=== PATIENT | male | born 1960 | race Caucasian/White ===

== ENCOUNTER 2018-06-03 11:45 | Inpatient (IN) | payer SELFPAY ==
[2018-06-03 12:29] LABS: Bilirubin Negative (Negative); Blood, Urine Negative (Negative); Clarity CLEAR (Clear); Glucose, Urine (Dipstick) Negative (Negative); Leukocyte Negative (Negative); Nitrite Negative (Negative); Protein, Urine (Dipstick) Negative (Neg-Trace); Specific Gravity, Urine 1.026 (1.002-1.036); Urobilinogen 0.2 mg/dL (0.2-1.0); pH, Urine 5.5 (5.0-9.0)
[2018-06-03 12:29] LABS: ALT (SGPT) 7 U/L (8-55); AST (SGOT) 13 U/L (5-34); Albumin 4.4 g/dL (3.5-5.0); Alkaline Phosphatase 105 U/L (40-150); Anion Gap 12 mmol/L (10-20); BUN (Urea Nitrogen) 15 mg/dL (8.4-25.7); Bilirubin, Total 0.5 mg/dL (0.2-1.2); Calc. Creatinine Clearance 0 mL/min (70-130); Calcium 9.6 mg/dL (7.8-10.44); Carbon Dioxide 25 mmol/L (22-29); Chloride 103 mmol/L (98-107); Estimated GFR-MDRD 72; Globulin 4.3 g/dL (2.4-3.5); Glucose 170 mg/dL (70-105); Potassium 4.1 mmol/L (3.5-5.1); Protein, Total 8.7 g/dL (6.0-8.3); Sodium 136 mmol/L (136-145)
[2018-06-03 12:34] LABS: INR-International Normal Ratio 1.1; PTT 27.9 SEC (22.9-36.1); Prothrombin Time 14.4 SEC (12.0-14.7)
[2018-06-03 12:56] LABS: #Eosinphils 0.1 thou/uL (0.0-0.7); #Lymphocytes 1.6 thou/uL (1.20-3.40); #Monocytes 0.5 thou/uL (0.11-0.59); #Neutrophils 5.8 thou/uL (1.40-6.50); %Basophils 0.6 % (0.0-1.0); %Eosinophils 1.7 % (0.0-10.0); %Lymphocytes 19.8 % (21.0-51.0); %Monocytes 5.6 % (0.0-10.0); %Neutrophils 72.3 % (42.0-75.0); Eosinophils 4 % (0-10); Hemoglobin 7.6 g/dL (14.0-18.0); Hypochromia MODERATE=16-30 cells (100X) (0-5/hpf); Lymphocytes 12 % (21-51); MDiff Complete? YES; Mean Corpuscular HGB CONC 29.4 g/dL (32.0-36.0); Mean Corpuscular Volume 61.2 fL (78.0-98.0); Microcytosis MODERATE=15-30 cells (100X) (0-5/hpf); Monocytes 7 % (0-10); Neutrophil 76 % (42-75); PLT Morphology Comment Appears Adequate; Platelet Count 277 thou/uL (130-400); Polychromasia SLIGHT = 2-3 cells (100X) (0-2/hpf); RBC Distribution Width 15.4 % (11.5-14.5); Red Blood Cell (RBC) Count 4.21 mill/uL (4.70-6.10)
[2018-06-03] MEDS ORDERED: ISOVUE-370 76%-LOCM 1 ML ONE (14:04)
--- NOTE | 2018-06-03 14:12 | CT ---
CT ABDOMEN AND PELVIS WITH IV CONTRAST: Multiple axial tomograms were obtained through the abdomen and pelvis with IV enhancement. Oral cont rast was not administered. INDICATION: Loss of appetite. Blood in stool. Weakness and lethargy. Hematemesis. FINDINGS: Lung bases clear. The liver, spleen, and pancreas appear unremarkable. Stomach and duodenum unremarkable. Adrenal gla nds unremarkable. Kidneys unremarkable. The small bowel loops are normal caliber. Colon is unremarkable. Urinary bladder is unremarkable. The ileus has mild atherosclerotic change. The aorta is ectatic measuring up to 2.3 cm distally. Th ere is thrombus in the right wall of the aorta distally at the site of mild ectasia. IMPRESSION: 1. There are atherosclerotic changes in the abdominal aorta with peripheral thrombus and ectasia as described. 2. No acute intraabdominal process identified. POS: MILES
[2018-06-03] MEDS ORDERED: Ondansetron HCl/PF 4 MG/2 ML Vial IVP PRN ×2 (16:13→17:16)
[2018-06-03] MEDS ORDERED: Acetaminophen 325 MG TAB PO PRN (16:13)
[2018-06-03] MEDS ORDERED: Ondansetron ODT 4 MG TAB SL PRN (16:13)
[2018-06-03 16:25] VITALS: BMI 23.8
[2018-06-03] MEDS ORDERED: GoLYTELY 4,000 ml Bottle PO SCH (17:00)
[2018-06-03] MEDS ORDERED: hydrALAZINE 20 MG/ML VIAL SLOW IVP PRN (17:16)
[2018-06-03] MEDS ORDERED: Ondansetron ODT 4 MG TAB PO PRN (17:16)
[2018-06-03] MEDS ORDERED: cloNIDine 0.1 MG TAB PO PRN (17:16)
[2018-06-03] MEDS: Sodium Chloride 0.9% 1,000 ML IV SCH (17:54)
[2018-06-03] MEDS: Pantoprazole 40 MG VIAL IVP SCH (20:06)
--- NOTE | 2018-06-03 20:19 | HP ---
DATE OF ADMISSION: 06/03/2018 PRIMARY CARE PHYSICIAN: Toyin bui. CHIEF COMPLAINT: Abdominal pain and blood in the stool. HISTORY OF PRESENT ILLNESS: This is a 58-year-old male who presents to [facility] complaining of approximately 3-month history of blood in the stool with increasing abd ominal cramping abdominal pain and approximately 50 pound weight loss. The patient states that he rey s had decreased energy, fatigue and sleeping more. The patient has noticed blood in the stool, but h as been bright red and dark at times. The patient states he has a sense of urgency and has a bowel m ovement with cramping. The patient denies any recent trauma, injury, previous endoscopy, travel hist ory. The patient denies any alcohol intake or tobacco use. The patient states he has been taking ib uprofen and Benadryl for assistance due to insomnia. The patient also states he was taking large rani unts of ibuprofen after an ankle fracture. The patient denies any chronic medical conditions, recent surgeries or past evaluation for similar episodes. The patient denies any travel history. The kishore ent admits to over 50 pound unintentional weight loss over the same time course as the blood in the s tool. The patient denies taking any medication for the blood in the stool or seeking evaluation due to negative view of the healthcare system. In the emergency room, the patient underwent general eval uation with CBC showing a hemoglobin of 7.6 with microcytic indices. Stool guaiac was positive x1. The patient was typed and crossed for 2 units of packed red blood cells. The patient also underwent CT imaging of the abdomen and pelvis showing no acute process. The patient was placed on IV fluids a nd transferred to the medical floor for further evaluation. PAST MEDICAL HISTORY: 1. Left calcaneus fracture, 2016. 2. Question of elevated blood pressure. 3. History of nephrolithiasis. PAST SURGICAL HISTORY: Reviewed and negative. CURRENT MEDICATIONS: Ibuprofen/diphenhydramine for insomnia. ALLERGIES: No known drug allergies. FAMILY HISTORY: Uncle with history of colon cancer. SOCIAL HISTORY: Patient is single, resides in [place], [place]. 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 No tobacco, alc ohol, or illicit drug use. REVIEW OF SYSTEMS: The following complete review of systems was negative, unless otherwise mentioned in the HPI or below: Constitutional: Weight loss or gain, ability to conduct usual activities. Sk in: Rash, itching. Eyes: Double vision, pain. ENT/Mouth: Nose bleeding, neck stiffness, pain, te nderness. Cardiovascular: Palpitations, dyspnea on exertion, orthopnea. Respiratory: Shortness of breath, wheezing, cough, hemoptysis, fever or night sweats. Gastrointestinal: Poor appetite, abdom inal pain, heartburn, nausea, vomiting, constipation, or diarrhea. Genitourinary: Urgency, frequenc y, dysuria, nocturia. Musculoskeletal: Pain, swelling. Neurologic/Psychiatric: Anxiety, depressio n. Allergy/Immunologic: Skin rash, bleeding tendency. PHYSICAL EXAMINATION: VITAL SIGNS: Currently, blood pressure 143/84, pulse 67, respiratory rate 16, temperature 98.1 degre es Fahrenheit, O2 saturation is 100% on room air. GENERAL APPEARANCE: This is a 58-year-old male, alert and oriented x3, pleasant, conversan t, in no acute distress. HEENT: Pupils are equal, round, and reactive to light and accommodation. Extraocular muscles are in tact. No scleral icterus. Pale conjunctivae noted. Nares patent. OP is clear. Teeth in fair repa ir. NECK: Supple, no cervical adenopathy, no thyromegaly, no carotid bruits, no JVD appreciated. Cervic al spine with full active and passive range of motion. No meningeal signs appreciated. CHEST: Lungs are clear to auscultation bilaterally. CARDIOVASCULAR: S1, S2, without noted murmur, rub or gallop. ABDOMEN: Rounded, soft, nontender, nondistended. Bowel sounds are positive in all four quadrants. There is no hepatosplenomegaly, no abdominal bruits, no rebound or guarding appreciated. EXTREMITIES: Warm and dry with fair turgor. No clubbing, cyanosis or asymmetric edema appreciated. Pulses palpable distally at the dorsalis pedis, posterior tibial, and popliteal arteries bilaterally . Capillary refill less than 2 seconds. NEUROLOGIC: Cranial nerves II-XII are grossly intact. No focal or lateralizing signs appreciated. PERTINENT LABORATORY AND X-RAY FINDINGS: Basic metabolic profile within normal limits. Calcium 9.6. LFTs within normal limits. Total bilirubin 0.5, albumin 4.4. CBC showed a white blood cell count of 8.0, hemoglobin 7.6, hematocrit 26, MCV 61, platelet count 277 with 72% neutrophils. PT 14.4, INR 1.1, PTT 27.9. Urinalysis showed trace ketones. CT of the abdomen and pelvis dated 06/03/2018 show ed atherosclerotic changes in the abdominal aorta with peripheral thrombus at the site of mild ectasi a. No acute intra-abdominal process identified. ASSESSMENT AND PLAN: 1. Gastrointestinal bleed. The patient will be admitted to the medical floor. We will continue Pro tonix 40 mg IV q.12 hours. Suspect upper gastrointestinal source given history and ongoing use of NS AIDs. We will consult GI service for EGD and colonoscopy likely to be performed on 06/04/2018. Molly monroy currently with n.p.o. status at midnight. 2. Acute blood loss anemia with microcytic indices. Status post 2 units of packed red blood cells c urrently. Continue serial H&H monitoring, repeat CBC in the a.m. Check iron studies. 3. Weight loss. Concerning for potential neoplastic process given the patient's history. We will p roceed with EGD and colonoscopy. Check CEA level in the a.m. 4. Prophylaxis. Sequential compression devices while in bed. Protonix 40 mg IV q.12 hours. 5. Code status is FULL. Surrogate medical decision maker is the patient's daughter.
[2018-06-04] MEDS: Sodium Chloride 0.9% 1,000 ML IV SCH ×4 (02:38→23:20)
[2018-06-04] MEDS: Acetaminophen 500 MG TAB PO PRN ×2 (02:38→14:04)
[2018-06-04 05:10] LABS: Reticulocyte Count 1.5 % (0.5-1.5)
[2018-06-04 05:14] LABS: #Basophils 0.1 thou/uL (0.0-0.2); #Eosinphils 0.2 thou/uL (0.0-0.7); #Lymphocytes 1.9 thou/uL (1.20-3.40); #Monocytes 0.5 thou/uL (0.11-0.59); %Basophils 1.1 % (0.0-1.0); %Lymphocytes 28.5 % (21.0-51.0); %Monocytes 7.2 % (0.0-10.0); %Neutrophils 60.3 % (42.0-75.0); Hemoglobin 8.5 g/dL (14.0-18.0); Mean Corpuscular HGB CONC 31.2 g/dL (32.0-36.0); Mean Corpuscular Hemoglobin 20.4 pg (27.0-31.0); Mean Corpuscular Volume 65.3 fL (78.0-98.0); Mean Platelet Volume 10.6 fL (7.4-10.4); Platelet Count 256 thou/uL (130-400); RBC Distribution Width 21.2 % (11.5-14.5); Red Blood Cell (RBC) Count 4.18 mill/uL (4.70-6.10); White Blood Cell (WBC) Count 6.6 thou/uL (4.8-10.8)
[2018-06-04 05:18] LABS: Iron 56 ug/dL (65-175); Iron Binding Capacity, Total 379 mcg/dL (261-462)
[2018-06-04 05:21] LABS: ALT (SGPT) Less than 7 U/L (8-55); AST (SGOT) 11 U/L (5-34); Albumin 3.9 g/dL (3.5-5.0); Alkaline Phosphatase 94 U/L (40-150); Anion Gap 10 mmol/L (10-20); BUN (Urea Nitrogen) 12 mg/dL (8.4-25.7); Bilirubin, Total 1.1 mg/dL (0.2-1.2); Calc. Creatinine Clearance 101 mL/min (70-130); Calcium 9.3 mg/dL (7.8-10.44); Carbon Dioxide 26 mmol/L (22-29); Chloride 107 mmol/L (98-107); Estimated GFR-MDRD 85; Globulin 3.7 g/dL (2.4-3.5); Glucose 94 mg/dL (70-105); Iron 56 ug/dL (65-175); Iron Binding Capacity, Total 384 mcg/dL (261-462); Potassium 4.4 mmol/L (3.5-5.1); Protein, Total 7.6 g/dL (6.0-8.3); Sodium 139 mmol/L (136-145)
[2018-06-04 05:32] LABS: CEA, Serum 5.7 ng/mL (< or = 5.0); Ferritin 4.46 ng/mL (22-322)
[2018-06-04] MEDS: Pantoprazole 40 MG VIAL IVP SCH ×2 (10:12→21:34)
[2018-06-04] MEDS ORDERED: Promethazine HCl 25 MG/ML VIAL SLOW IVP PRN (10:36)
[2018-06-04] MEDS ORDERED: Promethazine HCl 25 MG/ML VIAL IM PRN (10:36)
[2018-06-04] MEDS ORDERED: Ondansetron HCl/PF 4 MG/2 ML Vial IVP PRN (10:36)
--- NOTE | 2018-06-04 10:43 | CON ---
DATE OF CONSULTATION: 06/04/2018 REASON FOR CONSULTATION: Anemia and gastrointestinal bleeding. HISTORY OF PRESENT ILLNESS: Mr. Austin is a 58-year-old male who came to the emergency room last n ight with several months of rectal bleeding. He reports that mostly the stool is maroon to black. Sonia cardoza has had no nausea or vomiting. He has lost from about 240 pounds to about 180 pounds. He has fati lazara, decreased energy, and notes more sleeping. The stool sometimes is bright red, sometimes it is d ark and sometimes it is black. He does take quite a bit of NSAIDs, up to at 12 ibuprofen a day secon nicki to an old heel injury on the left foot that was supposed to be operated on, but never was. He d id drink alcohol heavily in the past, but does not have a taste for it and has not drank in 2 years. His daughter is at the bedside confirms this. He denies any dysphagia, odynophagia. His appetite i s okay, but when he eats he states he goes to the bathroom almost right away. In the emergency room, he was noted to have a hemoglobin of 7.6 with microcytic indices. His stool was Hemoccult positive. He was transfused 2 units of blood. CAT scan of abdomen and pelvis showed no acute processes. Pre sently he is without other complaints. PAST MEDICAL HISTORY: Left calcaneal fracture 2016. Prior history of elevated blood pressure. Hist ory of nephrolithiasis. PAST SURGICAL HISTORY: Negative. CURRENT MEDICATIONS: Ibuprofen and Benadryl for insomnia. ALLERGIES: None known. FAMILY HISTORY: Uncle with colon cancer. He thinks his mother may have had colon cancer. SOCIAL HISTORY: In the past he was a heavy drinker, he does not drink now. He does not smoke or use drugs. REVIEW OF SYSTEMS: Negative for chest pain, shortness of breath, dyspnea on exertion, dysphagia, hayley nophagia, abdominal pain, heartburn. Denies dysuria, frequency, urgency. PHYSICAL EXAMINATION: GENERAL: The patient is a 58-year-old male, he is in no distress. VITAL SIGNS: Temperature 97, pulse 66, blood pressure 130/78. LUNGS: Clear. HEART: Regular rate and rhythm without clicks or murmurs. ABDOMEN: Soft, nontender, without palpable hepatomegaly. EXTREMITIES: No clubbing, cyanosis or edema. There is no evidence of adenopathy in the upper or low er extremities or groin, inguinal region, supraclavicular area. SKIN: Normal. LABORATORY STUDIES: Hemoglobin is 8.5 after 2 units, it was 7.6 on admission, MCV was 61. White cou nt 8, platelet 277. INR 1.1. Comprehensive metabolic profile normal with normal liver function test s, proteins 8.7 on admission. Albumin 4.4. CEA was 5.7. Ferritin 4.4, iron saturation 15%, iron 56 and TIBC 379. A CAT scan of abdomen and pelvis; atherosclerotic changes in the abdominal aorta, peripheral thrombus and ectasia, no acute intraabdominal process. This was with IV contrast. No chest x-ray was done. ASSESSMENT: Severe microcytic anemia with rectal bleeding for 3 months and significant weight loss c oncerning for severe organic disease. PLAN: EGD and colonoscopy.
--- NOTE | 2018-06-04 11:21 | OP ---
DATE OF PROCEDURE: 06/04/2018 SURGEON: Coleman Christian M.D. OPERATIVE PROCEDURE: EGD and colonoscopy with polypectomy and biopsy. PREOPERATIVE DIAGNOSES: 1. Severe microcytic anemia with history of weight loss and lower gastrointestinal bleeding. 2. Heavy NSAID use. POSTOPERATIVE DIAGNOSES: 1. Normal esophagogastroduodenoscopy. 2. Colonoscopy notable for rectal mass from 2-10 cm from the anorectal verge involving 50% of the ci rcumference of the rectum. It is ulcerated, hard. Multiple biopsies were obtained. 3. A 5 mm ascending colon polyp removed by hot snare polypectomy and submitted to Pathology in a dif ferent jar. RECOMMENDATIONS: Surgical consult, Oncology consult. Repeat colonoscopy in 1 year. Recommended col orectal cancer screening for all first degree relatives at age 40. ANESTHESIA: TIVA. PROCEDURE IN DETAIL: After the patient was informed of the risks, benefits and possible complication s of endoscopy including perforation, bleeding, reactions to medication and aspiration, informed cons ent was obtained. The patient was brought to the endoscopy suite where he was sedated in gradual fas hion. Once he was comfortable, a bite block was placed in incisural orifice. The endoscope was adva nced through the oropharynx into the esophagus, stomach, second and third portion of duodenum and slo wly removed. The esophagus, stomach, and duodenum were normal except for a hiatal hernia. Retroflex ed views in the stomach were normal. The duodenum appeared normal with normal villi, no erosions. T he scope was removed. The patient was turned in the room. A rectal exam was performed. There was a mass palpated about a centimeter to 2 cm into the anorectal verge with raised margins, a firm surface. The endoscope was a dvanced into the anal canal through the colon to cecum which was identified by the ileocecal valve an d appendiceal orifice. Retroflexed views in the right colon were normal. There was a 5 mm polyp in the ascending colon, sessile, removed by hot snare polypectomy. Remainder of the colon appeared norm al except for in the colon there is some ulcerative mass with raised margins involving 50% of lumen o f the rectum from 10-2 cm from the anorectal verge. Multiple biopsies were taken and submitted to Pa thology. Retroflexed views showed this to be again 1-2 cm above the dentate line. The scope was rem margaux. The patient tolerated the procedure well with no complications. RECOMMENDATIONS: Consultations with General Surgery and Oncology.
--- NOTE | 2018-06-04 19:03 | RAD ---
CHEST TWO VIEWS: HISTORY: Rectal cancer. COMPARISON: Chest radiograph from 2008. FINDINGS: The lungs are clear. No pneumothorax or effusion. The cardiac silhouette and mediastinal contour ar e within normal limits. IMPRESSION: No acute intrathoracic abnormality. POS: HOME
[2018-06-04] MEDS ORDERED: Temazepam 15 MG CAP PO PRN (19:16)
[2018-06-04] MEDS: SODIUM CHLORIDE 0.9% IVPB SCH (19:23)
[2018-06-04] MEDS: SODIUM FERRIC GLUCONATE IVPB SCH (19:23)
--- NOTE | 2018-06-04 20:56 | PDOC.PN ---
- Subjective Encounter Start Date: 06/04/18 Encounter Start Time: 18:40 Subjective: f/u for GI bleed and acute blood loss anemia s/p 2u PRBC's. Colonoscopy -: showing rectal mass likely malignancy. - Objective Resuscitation Status: Resuscitation Status FULL:Full Resuscitation MAR Reviewed: Yes Vital Signs & Weight: Vital Signs (12 hours) Temp Pulse Resp BP Pulse Ox 06/04/18 16:36 97.8 F 63 18 124/75 99 06/04/18 11:27 97.9 F 58 L 18 132/83 100 Weight Weight 176 lb I&O: 06/03/18 06/04/18 06/05/18 06:59 06:59 06:59 Intake Total 1550 800 Balance 1550 800 Result Diagrams: 06/04/18 04:23 06/04/18 04:22 Additional Labs: Laboratory Tests 06/03/18 06/03/18 06/04/18 11:57 12:18 04:22 Hgb 7.6 L MCV 61.2 L Retic Count Immature Retic Fraction Iron TIBC % Saturation Ferritin Albumin 4.4 3.9 Carcinoembryonic Ag 06/04/18 06/04/18 06/04/18 04:22 04:22 04:23 Hgb MCV Retic Count 1.5 Immature Retic Fraction 0.463 H Iron 56 L TIBC 379 % Saturation 15 L Ferritin 4.46 L Albumin Carcinoembryonic Ag 5.70 H Radiology Reviewed by me: Yes (Colonoscopy - large rectal mass ) Phys Exam - Physical Examination Constitutional: NAD HEENT: PERRLA, sclera anicteric, oral pharynx no lesions Neck: no nodes, no JVD, supple, full ROM Respiratory: no wheezing, no rales, no rhonchi, clear to auscultation bilateral S1, S2 Cardiovascular: RRR, no significant murmur, no rub, gallop Gastrointestinal: soft, non-tender, no distention, positive bowel sounds Musculoskeletal: no edema, pulses present Neurological: non-focal, normal sensation, moves all 4 limbs Psychiatric: A&O x 3 Skin: no rash, normal turgor, cap refill <2 seconds Dx/Plan (1) GI bleed Code(s): K92.2 - GASTROINTESTINAL HEMORRHAGE, UNSPECIFIED Status: Acute Qualifiers: GI bleed type/associated pathology: anorectal hemorrhage Qualified Code(s) : K62.5 - Hemorrhage of anus and rectum Comment: Secondary to rectal mass, serial H/H, Consult Gen Surgery (2) Acute blood loss anemia Code(s): D62 - ACUTE POSTHEMORRHAGIC ANEMIA Status: Acute Comment: s/p 2u PRBC's, serial H/H, avoid NSAIDs and anticoagulation (3) Rectal mass Code(s): K62.9 - DISEASE OF ANUS AND RECTUM, UNSPECIFIED Status: Acute Comment: Likely malignancy, Med Oncology and Gen Surgery consults (4) Iron deficiency anemia due to chronic blood loss Code(s): D50.0 - IRON DEFICIENCY ANEMIA SECONDARY TO BLOOD LOSS (CHRONIC) Status: Chronic Comment: Iron infusion today, FeSO4 po BID for outpt (5) Anorexia Code(s): R63.0 - ANOREXIA Status: Chronic Comment: Continue to monitor po intake and daily weight, ? Megace - Plan plan discussed w/ family, PT/OT, social contact worker, out of bed/ambulate, DVT proph w/SCDs Stable currently -: Await Gen Surgery and Medical Oncology recommendations -: FeSO4 325mg BID -: Restoril 15mg HS for insomnia -: AM lab: BMP, CBC * .
--- NOTE | 2018-06-04 22:46 | CON ---
DATE OF CONSULTATION: 06/04/2018 REASON FOR CONSULTATION: Rectal mass. HISTORY OF PRESENT ILLNESS: Mr. Austin is a pleasant 58-year-old gentleman, [facility] a 3-month history of rectal bleeding. He also has lost 50 pounds over t he last several months. He has had bright red to dark stool and has dark blood in his stool. He had an abdominal-pelvis CT, which showed no mass. His CBC showed hemoglobin of 7.6, received 2 units of packed RBCs and was admitted for further workup. Dr. Christian saw the patient and performed an EGD an d colonoscopy this morning. There was a 5 mm polyp in the ascending colon that was removed. The EGD was normal. He had a rectal mass from 2 to 10 cm from the anorectal verge, involved 50% of the circ umference of the rectum. It was ulcerated. Multiple biopsies were obtained and they are currently p ending. The patient has not had a colonoscopy. He has an uncle and possibly mother who had colon ca ncer. He denies any chest pain or shortness of breath. He denies abdominal pain. He has some recta l discomfort. He does have frequent diarrhea and poor appetite. CEA drawn was 5.7. PAST MEDICAL HISTORY: 1. Hypertension. 2. Nephrolithiasis. 3. Left ankle fracture. PAST SURGICAL HISTORY: None. ALLERGIES: No known drug allergies. CURRENT MEDICATIONS: Benadryl and ibuprofen. FAMILY HISTORY: Uncle with colon cancer. He thinks his mother may have had colon cancer as well. SOCIAL HISTORY: Single, past history of heavy drinking over 2 years ago. No current alcohol, tobacc o, or illicit drug use. REVIEW OF SYSTEMS: Ten-point review of systems is negative except noted in HPI. PHYSICAL EXAMINATION: VITAL SIGNS: Temperature is 97.8, pulse is 63, respiratory rate 18, BP is 124/75, he is 99% on room air. GENERAL: A well-developed, well-nourished male, in no acute distress. HEENT: Normocephalic, atraumatic. Pupils are equal and reactive to light. NECK: Supple. CARDIOVASCULAR: Regular rate and rhythm. LUNGS: Clear. ABDOMEN: Soft and nontender. There is no organomegaly. Bowel sounds are positive. EXTREMITIES: No clubbing, cyanosis, or edema. SKIN: No rash. HEMATOLOGIC: No petechia or purpura. NEUROLOGIC: Nonfocal. PSYCHIATRIC: The patient is alert and oriented and appropriate. PERTINENT LABORATORY AND X-RAYS: Current WBC 6.6, hemoglobin 8.5, hematocrit 27.3, platelet count is 256,000. He has got 60% neutrophils, 28% lymphocytes. Retic count is 1.5. PT is 14.4, INR is 1.1, PTT is 27.9. Sodium 139, potassium 4.4, chloride 107, CO2 is 26, BUN is 12, creatinine is 0.92, glu cose is 94, calcium 9.6. Iron 56, TIBC is 379, 50% saturation, ferritin is 4. Total bilirubin is 1. 1, AST is 11, ALT is less than 7, alkaline phosphatase is 94. Serum total protein 7.6, albumin 3.9, globulin 3.7. CEA is 5.7. Radiology per HPI. ASSESSMENT: 1. Rectal mass. 2. Blood loss anemia. DISCUSSION: Dr. Cuninngham has been consulted for a surgical opinion. He likely needs neoadjuvant chemo radiation. We will consult Dr. Spencer for his opinion and case management for assistance with financi al services. He will get one dose of IV iron. For his low ferritin count, further recommendations w ill be based on pathological review. Thank you for the consult.
--- NOTE | 2018-06-04 22:58 | HP ---
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 He was found, on admission, to have hemoglobin of 7.6. Because of symptoms, he was transfused blood. He underwent upper and lower endoscopy by Dr. Christian; upper endo scopy is normal, lower endoscopy revealed a rectal mass described as about 2 to 10 cm from the anorec jonathan verge occupying 50% of the circumference of the rectum, extending from 2 cm to 10 cm. Biopsies o btained. Pathology pending. CEA elevated to 5.7. Chest x-ray will be ordered, as it has not been o btained. FALLON Quispe, Oncology, has seen him and plan is for chemoradiation therapy. ALLERGIES: None. TOBACCO: None. ALCOHOL: None. MEDICATIONS: Ibuprofen. PAST SURGICAL HISTORY: Noncontributory. PAST MEDICAL HISTORY: Calcaneus fracture in 2016, history of nephrolithiasis. REVIEW OF SYSTEMS: Unremarkable. FAMILY HISTORY: Positive for his mother having colon cancer, his aunt having colon cancer, and his b rother having colon cancer. His sister has undergone colonoscopies every 2-3 years with a history of polyps. Patient has been resistant to have colonoscopies in the past. PHYSICAL EXAMINATION: VITAL SIGNS: Height 6 feet, weight 176 pounds, 23 BMI, temperature 97.8, pulse 63, blood pressure 12 475. LUNGS: Clear to auscultation. CARDIAC: Regular rate and rhythm without murmur, rub, or gallop. ABDOMEN: Soft, nontender, nondistended, no palpable masses. EXTREMITIES: Unremarkable. Ankles without edema. NEUROLOGICAL: Intact. Sclerae nonicteric. SKIN: Normal turgor. Rectal exam reveals posteriorly. I can feel the base of the tumor approximate ly 4-5 cm beyond the anus. There is a shelving edge projecting within 2-3 cm of the anus. The tumor is firm and immobile. Comprehensive metabolic profile normal. CEA level 5.7. Hemoglobin 8.5, white count 6. ASSESSMENT AND PLAN: Rectal cancer. Pathology pending. Agree with plans for josi adjunctive chemora diation therapy, port will not be necessary as oral chemotherapy will be initiated. I have discussed with the patient and his family that, if josi-adjunctive therapy does not adequately downsize this, h e may need an APR, but reassessment after radiation therapy should be done and plans will be made at that time for surgical intervention. Patient understands. Surgery will be necessary and that chemor adiation is josi-adjunctive therapy. Patient will take iron and vitamins as an outpatient. He will f ollow up in my office in about 4-6 weeks after radiation is complete.
[2018-06-05] MEDS: Acetaminophen 500 MG TAB PO PRN (04:55)
[2018-06-05 05:24] LABS: Anion Gap 13 mmol/L (10-20); BUN (Urea Nitrogen) 8 mg/dL (8.4-25.7); Calc. Creatinine Clearance 97 mL/min (70-130); Calcium 9.1 mg/dL (7.8-10.44); Carbon Dioxide 24 mmol/L (22-29); Chloride 107 mmol/L (98-107); Estimated GFR-MDRD 81; Glucose 91 mg/dL (70-105); Potassium 3.6 mmol/L (3.5-5.1); Sodium 140 mmol/L (136-145)
[2018-06-05 05:30] LABS: Band 1 % (5-11); Eosinophils 5 % (0-10); Lymphocytes 24 % (21-51); MDiff Complete? YES; Mean Corpuscular HGB CONC 30.5 g/dL (32.0-36.0); Mean Corpuscular Volume 65.5 fL (78.0-98.0); Mean Platelet Volume 10.8 fL (7.4-10.4); Monocytes 5 % (0-10); Neutrophil 65 % (42-75); PLT Morphology Comment Appears Adequate; Platelet Count 249 thou/uL (130-400); RBC Distribution Width 21.3 % (11.5-14.5); Red Blood Cell (RBC) Count 3.98 mill/uL (4.70-6.10); White Blood Cell (WBC) Count 6.6 thou/uL (4.8-10.8)
[2018-06-05] MEDS: SODIUM FERRIC GLUCONATE IVPB SCH (07:06)
[2018-06-05] MEDS: SODIUM CHLORIDE 0.9% IVPB SCH (07:06)
[2018-06-05] MEDS ORDERED: Acetaminophen/Codeine 30-300mg Tablet PO PRN ×2 (08:39)
[2018-06-05] MEDS ORDERED: Multivit, Therapeutic 1 TAB PO SCH (09:00)
[2018-06-05] MEDS: Pantoprazole 40 MG VIAL IVP SCH (09:12)
[2018-06-05] MEDS: Ferrous Sulfate 325 MG TAB PO SCH ×2 (09:12→16:25)
[2018-06-05] MEDS: Sodium Chloride 0.9% 1,000 ML IV SCH (09:20)
--- NOTE | 2018-06-05 11:01 | CON ---
DATE OF CONSULTATION: 06/05/2018 REASON FOR ADMISSION: Mr. Austin is a 58-year-old gentleman who appears to have likely been diagno sed with a clinical stage 2A, T3 N0 M0 rectal cancer, likely adenocarcinoma. HISTORY OF PRESENT ILLNESS: Mr. Austin has been having some difficulty for a while. He is 58 year s old and for the past 3 months has had blood in the stool as well as an "upset stomach" and more angella quent bowel movements, typically every time he eats. Because of that he has been eating less and has lost 50 pounds. 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 Because of feeling weak and tired and not being able to get to bed he was broug ht to the emergency room where he was found to have a hemoglobin of 7.6. He underwent CT scan of the abdomen and pelvis which showed no acute process. He was transfused. Yesterday, he underwent a col onoscopy by Dr. Christian. The colonoscopy showed beginning 1-2 cm from the anorectal verge a rectal ma ss which extended up to 10 cm. It involved 50% of the circumference of the rectum and was ulcerated and hard. Biopsies were performed and are currently pending. He did have a small polyp removed from the ascending colon. He was seen by Medical Oncology yesterday and I have been asked to see him for consideration of radiation therapy. Apparently he saw Surgery yesterday. He reports that he has rey d more rectal bleeding since his rectal examination yesterday. Presently he states that he hurts all over. He does have some pain in the rectum. He is also having pain in his left heel from a previou s fracture. He voices no other complaints. PAST MEDICAL HISTORY: 1. Left calcaneus fracture in 2016, which he was unable to have surgically repaired. 2. Possible history of hypertension. 3. Past history of kidney stones. 4. He denies other medical or surgical problems. MEDICATIONS: On admission include ibuprofen. He is now also on Protonix and getting IV iron. ALLERGIES: No known medical allergies. SOCIAL HISTORY: He lives by himself in [place], [place]. 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 He denies any cigarette use. He has not had any alcohol use for at least a year. His sis ter is with him at his bedside. FAMILY HISTORY: His mother at age 72 from congestive heart failure and diabetes. She also had colon cancer. Father in his 50s from myocardial infarction. He has a maternal aunt who had col on cancer and is currently on hospice care in her 70s. He had a brother who had colon cancer in his 40s who is still living and in remission. REVIEW OF SYSTEMS: Twelve system review of systems is otherwise negative. PHYSICAL EXAMINATION: VITAL SIGNS: Height 6 feet, weight 176 pounds, blood pressure is 145/79, pulse is 56, respirations 9 8.0, O2 saturation is 98%. GENERAL: He is alert and oriented and in no apparent distress. He is well-developed and well-nouris hed. Karnofsky performance status is an 80%. EYES: Pupils equal, round, react to light. Extraocular movements are intact. ENT: Oral cavity and oropharynx normal without lesion or erythema. Palate elevates symmetrically. Gingiva is intact. NECK: Supple, without cervical or supraclavicular adenopathy. No thyromegaly. Larynx midline. LUNGS: Breathing nonlabored. Clear to auscultation and percussion. HEART: Regular rhythm without murmur. No lower extremity edema. BACK: No tenderness on fist percussion of the spine. LYMPHATIC: No axillary or inguinal adenopathy. ABDOMEN: Bowel sounds present. Soft, nontender, nondistended, without mass or hepatosplenomegaly. Liver percusses to normal size. RECTAL: Deferred at the patient's request as he is still sore from being examined yesterday. I will potentially exam him at the time of simulation. SKIN: Without rash or purpura. NEUROLOGIC: Cranial nerves II-XII grossly intact. Motor strength is 5/5 in both upper and lower ext remities in all muscle groups tested. Reflexes are diminished, but symmetrical. Gait was not tested . LABORATORY AND X-RAY FINDINGS: Pathology is currently pending. CBC revealed a white blood cell coun t of 6600 with a hemoglobin of 8.0, hematocrit 26.1. Platelet count was 249,000. Chemistry group sh owed normal electrolytes. Iron was low at 56. Albumin was 3.9. CEA was elevated at 5.70. RADIOLOGIC: CT scan of the abdomen and pelvis was personally reviewed. There is no evidence of rosy opathy or distant metastatic disease. I do think he has thickening of the distal rectum consistent w ith his rectal cancer. I do not see any perirectal adenopathy. ASSESSMENT: Mr. Austin is a 58-year-old gentleman with a likely a clinical stage 2A, T3, N0, M0 ad enocarcinoma of the distal rectum. Pathology is currently pending. PLAN: As mentioned, we will need to await the final pathology. I suspect this is going to be adenoc arcinoma. Once final pathology is obtained, we can make a final decision regarding treatment options . Assuming this is adenocarcinoma, then he is going to be best managed with neoadjuvant chemotherapy and radiation followed by surgical resection. I had a long discussion with Mr. Austin and his fam ramya with him today regarding his probable diagnosis, prognosis, and treatment options. I explained t hat neoadjuvant chemoradiation is the treatment of choice as it does improve overall survival and loc al control compared to surgery alone and also may allow us to downstage the cancer to avoid colostomy , although this is not certain. Given how low the cancer is, he understands that there is significan t chance that he will need a colostomy. This will have to be a decision made by the surgeon. Also, overall complications are lower with neoadjuvant chemotherapy and radiation compared to postoperative treatment. The logistics of radiation as well as the benefits and risks of treatment were discussed . Side effects would include but not be limited to skin reaction, fatigue, lower blood counts, diarr hea, tenesmus, burning and frequency of urination, nausea, vomiting, decreased appetite, small risk o f damage to his intestines, small risk of damage to his hips or any other structure which received ra diation, impotence, and rarely other unforeseen side effects from his radiation therapy. The simulat ion and daily treatment procedure were discussed in depth. Typically this treatment can be given as an outpatient. Time was taken to answer all their questions regarding their treatment options. We will await final pathology before deciding best how to pursue. Unfortunately, complicating this is the fact that he is uninsured. We will work with the [facility] services and social workers to determine when and how we can proceed. His treatment will be coordinated with his chemotherapy also. He did ask questions about if he were not to pursue treatment. I explained that his cancer would carmel ntually take his life and if he did not pursue treatment in a somewhat timely fashion he will continu e to bleed and will end up back in the hospital for more transfusions. Please consider transfusing him to keep his hemoglobin around 10 or better. We can proceed once final pathology is available and once I get clearance from the hospital. Thank you for this interesting consultation.
[2018-06-05 17:03] VITALS: BP 153/82; TEMP 98.4
--- NOTE | 2018-06-05 23:35 | DIS ---
DATE OF ADMISSION: 06/03/2018 DATE OF DISCHARGE: 06/05/2018 DISCHARGE DIAGNOSES: 1. Invasive moderately differentiated adenocarcinoma with mucinous differentiation of the rectosigmo id colon. 2. Lower gastrointestinal bleed. 3. Blood loss anemia. 4. Pathologic weight loss. 5. Lower extremity pain with cramps, chronic. HISTORY: Patient is a 58-year-old male who initially presented to the hospital with a complaint of p rolonged rectal bleeding with some rectal urgency and 50 pound weight loss. The patient was found to be substantially anemic on his initial presentation with hemoglobin of 7.6. HOSPITAL COURSE: The patient was admitted to the hospital with a microcytic anemia with significant weight loss and lower GI bleeding. He received blood transfusion and subsequently seen by OLGA LIDIA. OLGA LIDIA solis d an endoscopy which revealed a mass lesion in the rectosigmoid colon that was from 2 cm to 10 cm fro m the anal verge while encompassing about 50% of the diameter. Biopsies were taken. Subsequently, t his revealed moderately differentiated adenocarcinoma with mucinous differentiation. Oncology was co nsulted as well as Radiation Oncology and General Surgery. Ultimately, the plan would be for the pat ient to undergo neoadjuvant chemotherapy. He did not need a port placed at that time. The patient w as eager to be discharged so that he could try to get back to work. He was seen by a financial couns marcelina to try to help with some financial assistance. Once he had been established with Radiation Onc ology, Medical Oncology and Surgery, he was felt to be stable for discharge home [facility]. Patient also noted that he was having some pain in his lower extremities, which he reported had been present prior to the time of admission, but was keeping him from getting adequate sleep and this was subsequently treated with oral Tylenol #3. PHYSICAL EXAMINATION: VITAL SIGNS: On the day of discharge, temperature 98.0, pulse 56, respirations 20, O2 sat 98% on alicia m air, BP 145/79. GENERAL: The patient is awake, alert, oriented, pleasant, cooperative. HEART: Regular rate and rhythm without murmurs. LUNGS: Clear bilaterally. ABDOMEN: Soft, nontender, nondistended. EXTREMITIES: Warm and dry without significant edema. LABORATORY DATA AND IMAGING DATA: White count of 6.6, hemoglobin 8.0, platelets 249. Also, of note, he had a CT abdomen which was unremarkable and a chest x-ray which were unremarkable. DISPOSITION: The patient is discharged to home. He will have Tylenol #3 two tabs p.o. q.6 hours p.r.n. severe pain as well as iron with Feosol 325 mg b.i.d. He is to follow up with Bernice Zuniga in the outpatient clinic on 06/18/2018. He is to follo w up with Dr. Cunningham as well. His activity level is as tolerated. He has no dietary restrictions. He should return to the emergency department should he have any problems prior to his followup.
== END 2018-06-05 16:36 | disposition home or self-care (01) | DRG 375 ==
LOC: ERS 11:45 → T4-B 16:14
PROVIDERS: ADMIT Family Medicine; ATTEND Family Medicine
PROC: 30233N1 Transfusion of Nonautologous Red Blood Cells into Peripheral Vein, Percutaneous Approach (ICD-10-PCS; principal; 2018-06-03)
PROC: 0DJ08ZZ Inspection of Upper Intestinal Tract, Via Natural or Artificial Opening Endoscopic (ICD-10-PCS; 2018-06-04)
PROC: 0DBP8ZX Excision of Rectum, Via Natural or Artificial Opening Endoscopic, Diagnostic (ICD-10-PCS; 2018-06-04)
PROC: 0DBK8ZZ Excision of Ascending Colon, Via Natural or Artificial Opening Endoscopic (ICD-10-PCS; 2018-06-04)
DX: C19 Malignant neoplasm of rectosigmoid junction (principal); K92.2 Gastrointestinal hemorrhage, unspecified; D62 Acute posthemorrhagic anemia; R63.4 Abnormal weight loss; Z68.23 Body mass index [BMI] 23.0-23.9, adult; G89.29 Other chronic pain; I10 Essential (primary) hypertension; D50.0 Iron deficiency anemia secondary to blood loss (chronic); R63.0 Anorexia; Z80.0 Family history of malignant neoplasm of digestive organs
CPT/HCPCS: 36415; 36430; 71046; 74177; 80048; 80053; 81003; 82378; 82728; 83540; 83550; 85007; 85025; 85027; 85046; 85060; 85610; 85730; 86850; 86900; 86901; 88305; 96360; 96361; A4216; C9113; J2916; J7050; P9016; Q0162

== ENCOUNTER 2018-06-22 12:35 | Outpatient (CLI) | payer OTHER, SELFPAY ==
[2018-06-22] MEDS ORDERED: ISOVUE-370 76%-LOCM 1 ML ONE (14:20)
== END 2018-06-22 12:36 | disposition home or self-care (01) ==
LOC: BICCT 12:35
PROVIDERS: ATTEND Internal Medicine Hematology & Oncology
DX: C20 Malignant neoplasm of rectum (principal)
CPT/HCPCS: 71260

== ENCOUNTER 2018-07-02 05:34 | Day surgery (SDC) | payer OTHER, SELFPAY ==
[2018-06-27 12:06] VITALS: BMI 24.9
--- NOTE | 2018-06-27 13:30 | HP ---
HISTORY OF PRESENT ILLNESS: Martinez Austin is a 58-year-old male patient with rectal cancer. I saw him as an inpatient in the hospital. He has a rectal tumor palpated index finger approximately inde x finger length from the anal verge, although has a shelving edge much closer to the anus. He was se en in the hospital and diagnosed with T3 N0 M0 rectal cancer. Biopsies revealed adenocarcinoma. He has presented with a rectal mass. CT scan of abdomen and pelvis and chest x-ray were without metasta tic changes. Dr. Christian performed his colonoscopy and upper endoscopy 06/04/2018. He has seen Dr. Roby frost and Dr. Spencer and is to start chemoradiation therapy next week. The plan is to place a MediPo rt and leave IV access. CEA 06/04/2015 was 5.7. Please see my consultation report from end of May 2018 for details of his past history. PHYSICAL EXAMINATION: VITAL SIGNS: Blood pressure 146/86, heart rate 70, temperature 98.6 degrees, 184.6 pounds, 6 foot in ches tall. HEENT: Unremarkable. LUNGS: Clear to auscultation. CARDIAC: Regular rate and rhythm without murmur or gallop. ABDOMEN: Soft, nontender. EXTREMITIES: Unremarkable. ASSESSMENT AND PLAN: Rectal cancer. We will plan placement of MediPort outpatient IV sedation, loca l anesthesia. Follow up immediately post-MediPort placement for immediate initiation of chemotherapy and radiation therapy. Follow up in my office approximately 4-5 weeks after completion of radiation therapy to reexamined him and discuss definitive surgical resection, low anterior resection of his r ectal cancer.
[2018-07-02] MEDS ORDERED: CEFAZOLIN/Water 2 GM/20 ML SYRINGE ONE (06:15)
[2018-07-02] MEDS ORDERED: Lidocaine 2% PF Inj 2 ML VIAL ONE (06:39)
[2018-07-02] MEDS ORDERED: Bupivacaine HCl 0.5%/Epinephrine 1:200,000/PF 30 ml Vial ONE (06:39)
[2018-07-02] MEDS ORDERED: PROPOFOL 40 ML ONE (06:57)
[2018-07-02] MEDS ORDERED: Fentanyl 100 MCG/2 ML VIAL ONE (06:57)
--- NOTE | 2018-07-02 08:38 | OP ---
DATE OF PROCEDURE: 07/02/2018 PREOPERATIVE DIAGNOSIS: Rectal cancer, need of antineoplastic chemotherapy access. POSTOPERATIVE DIAGNOSIS: Rectal cancer, need of antineoplastic chemotherapy access. PROCEDURE: Left subclavian vein low profile MediPort. SURGEON: Dr. Mauro Cunningham ANESTHESIA: TIVA, local 0.5% Marcaine with epinephrine 30 mL mixed with Xylocaine, 10 mL. PROCEDURE: The patient was taken to the operating room where under intravenous sedation, his neck an d chest prepped with ChloraPrep, draped in routine fashion. Local anesthetic infiltrated into the sk in and subcutaneous tissue about the operative site. Infraclavicular left subclavian approach used t o cannulate the subclavian vein, advancing the J wire, removing the trocar catheter, making skin inci jenn and creating a second subcutaneous pocket for the MediPort. Hemostasis gained with the cautery. Dilator and pull-away sheath placed over the J-wire in superior vena cava. Dilator and J-wire zeb jenny. Catheter placed with pull-away sheath. Pull-away sheath removed. Fluoroscopically, catheter t ip placed in optimal position in the superior vena cava and the catheter tailored to length, connecte d to the MediPort which was placed in subcutaneous pocket and secured with 2 interrupted sutures of 3 -0 Prolene. Subcutaneous tissues approximated with 3-0 Monocryl, skin with subdermal 4-0 Monocryl an d DermaGlue applied. The port accessed with a Mares needle, aspirated blood, and flushed with hepari nized saline solution. Sterile dressing applied. The patient tolerated the procedure well.
--- NOTE | 2018-07-02 09:52 | RAD ---
CHEST ONE VIEW PORTABLE: History: 58-year-old male with history of status post Mediport placement. Comparison: 06-04-18 FINDINGS: Left subclavian catheter and ejection port. Heart size is normal. The lungs are clear. No pneumothora x or pleural effusion. IMPRESSION: Left subclavian catheter injection port. No acute intrathoracic disease. No pneumothorax. Atheroscler osis of the aorta. POS: C
[2018-07-02] MEDS ORDERED: Lidocaine 1% PF 5 ML VIAL ONE (12:37)
[2018-07-02] MEDS ORDERED: PROPOFOL 200 MG/20 ML VIAL ONE (12:37)
== END 2018-07-02 09:01 | disposition home or self-care (01) ==
LOC: SDC 05:34
PROVIDERS: ATTEND Specialist
PROC: 0JH63WZ Insertion of Totally Implantable Vascular Access Device into Chest Subcutaneous Tissue and Fascia, Percutaneous Approach (ICD-10-PCS; principal; 2018-07-02)
DX: C20 Malignant neoplasm of rectum (principal); Z80.0 Family history of malignant neoplasm of digestive organs
CPT/HCPCS: 71045; C1788; J0670; J1642; J2001; J2704; J3010

== ENCOUNTER 2018-10-29 10:02 | Inpatient (IN) | payer OTHER, SELFPAY ==
--- NOTE | 2018-10-23 07:24 | HP ---
HISTORY OF PRESENT ILLNESS: Martinez Austin is a 58-year-old male, who was hospitalized at [facility] for anemia, severe, undergoing upper endoscopy that was normal; colonoscopy, noting a rectal mass extending from 2 to 10 cm from the anal verge. Biopsy revealed adenocarcinoma. His CEA level was normal. CAT scan of the abdomen and pelvis performed on 06/03/2018, was without metastasis. His biopsy from March 04, 2018, revealed invasive moderately differentiated adenocarcinoma with mucinous differentiation. As noted above, his CEA level on 07/30/2018 was normal. I saw him in [facility] on 06/04/2018 and Oncology saw him subsequently on 06/27/2018, placed a left subclavian vein MediPort. The patient has seen Dr. Parsons and Dr. Spencer, and has completed chemoradiation therapy. His diarrhea is improved. It was felt that he had T3 rectal mass. Today in the office, rectal exam repeated, could not feel the tumor. When I examined him in the hospital, this tumor mass had a pedicle that was higher than the reported 2 to 3 cm from the anal verge. Plan at this time is laparoscopic-assisted low anterior resection, possible APR, possible diverting ileostomy. The patient understands the risks of infection, reoperation, anastomotic leakage, potential permanent colostomy, and consents. ALLERGIES: NONE. SOCIAL HISTORY: Tobacco, none. Alcohol, none. MEDICATIONS: Occasional ibuprofen. PAST SURGICAL HISTORY: Noncontributory except as noted above. PAST MEDICAL HISTORY: Calcaneus fracture in 2016, history of nephrolithiasis. REVIEW OF SYSTEMS: Unremarkable. The patient has been working since his radiation has been complete. He has a job obligation in the beginning of October. We will proceed it towards the mid or later in October with the above procedure. FAMILY HISTORY: Significant that his mother had colon cancer, his aunt had colon cancer, and his brother had colon cancer. PHYSICAL EXAMINATION: VITAL SIGNS: 181 pounds, 73 inches, 149/93, 75, 98.8 degrees. HEAD, EARS, EYES, NOSE, AND THROAT: Unremarkable. LUNGS: Clear to auscultation. CARDIAC: Regular rate and rhythm without murmur or gallop. ABDOMEN: Soft and nontender. No masses. Groins without lymphadenopathy. EXTREMITIES: Unremarkable. RECTAL: Perianal area is normal. Rectal exam, I cannot palpate any masses. I cannot feel the tumor with the examining finger. ASSESSMENT: Rectal cancer. PLAN: We will plan above-described procedure, general anesthesia, TAP block. Bowel prep prior with antibiotic prep. He will follow up in the office in 2 to 3 weeks. Questions answered. Job ID: [id number]
--- NOTE | 2018-11-15 08:14 | HP ---
ADDENDUM: This is an addendum to dictation #[id number] dictated on 09/27/2018. Please find that dictation from 09/27/2018 and make this an addendum to the top of that dictation. Mr. Eusebio Austin reports to my office today in reference to his rectal cancer. He finished radiation and chemotherapy in August. He completed this on 09 of August, had work obligations, and wants to postpone his surgery. He has postponed on an another occasion due to family illness. He reports to my office today asking if he can avoid surgery since he feels so good. 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 I have explained to him that chemoradiation therapy, which he has already gone through as an adjunctive therapy to surgery not a stand-alone treatment and that without the surgery, his risk of inoperable recurrence is great and that now is the time to have this operation described, which consist of laparoscopic assisted low-anterior resection with either APR or colorectal low anastomosis with possible diverting ileostomy. He understands risks of infection, bleeding, reoperation, possibility of having to have an APR, and I have explained these issues to him and he after discussion, wants to proceed with surgery. PHYSICAL EXAMINATION: VITAL SIGNS: 198 pounds, 73 inches, 153/94, 68 heart rate, 99 degrees. HEAD, EARS, EYES, NOSE, AND THROAT: Unremarkable. LUNGS: Clear to auscultation. CARDIAC: Regular rate and rhythm without murmur or gallop. ABDOMEN: Soft and nontender. EXTREMITIES: Unremarkable. RECTAL: Exam not repeated. Last visit, I could not feel the tumor on exam. It was initially prior to radiation, I could feel the shelving edge of the tumor in the lower rectum. ASSESSMENT: Rectal cancer, status post radiation chemotherapy. PLAN: Laparoscopic assisted low anterior resection, possible APR, possible diverting ileostomy. He understands risks of infection, bleeding, reoperation, possibly of a permanent colostomy, and consents his wishes to proceed as scheduled next week. Job ID: [id number]
[2018-11-16 15:13] VITALS: BMI 25.4
[2018-11-21] MEDS ORDERED: Midazolam HCl 2 mg/2 ml Vial ONE ×2 (08:06→10:54)
[2018-11-21] MEDS ORDERED: Fentanyl 100 MCG/2 ML VIAL ONE ×5 (08:06→17:10)
[2018-11-21] MEDS ORDERED: Dexamethasone 4 mg/ml Vial ONE (08:27)
[2018-11-21] MEDS ORDERED: Ketorolac Tromethamine 30 MG/ML VIAL ONE (08:41)
[2018-11-21] MEDS ORDERED: Meropenem 2 GM in Sodium Chloride 0.9% 100 ML IVPB SCH (08:45)
[2018-11-21 08:59] LABS: Hemoglobin A1c 4.9 % (4.0-6.0)
[2018-11-21 09:07] LABS: #Eosinphils 0.1 thou/uL (0.0-0.7); #Monocytes 0.4 thou/uL (0.11-0.59); #Neutrophils 3.9 thou/uL (1.40-6.50); %Basophils 0.5 % (0.0-1.0); %Eosinophils 1.7 % (0.0-10.0); %Monocytes 7.7 % (0.0-10.0); %Neutrophils 72.1 % (42.0-75.0); Mean Corpuscular HGB CONC 32.5 g/dL (32.0-36.0); Mean Corpuscular Volume 89.1 fL (78.0-98.0); Mean Platelet Volume 7.7 fL (7.4-10.4); Platelet Count 179 thou/uL (130-400); RBC Distribution Width 13.2 % (11.5-14.5); Red Blood Cell (RBC) Count 4.85 mill/uL (4.70-6.10); White Blood Cell (WBC) Count 5.4 thou/uL (4.8-10.8)
[2018-11-21 09:27] LABS: Anion Gap 15 mmol/L (10-20); BUN (Urea Nitrogen) 14 mg/dL (8.4-25.7); Calc. Creatinine Clearance 114 mL/min (70-130); Carbon Dioxide 24 mmol/L (22-29); Chloride 104 mmol/L (98-107); Estimated GFR-MDRD Greater than 90; Glucose 96 mg/dL (70-105); Potassium 3.9 mmol/L (3.5-5.1); Sodium 139 mmol/L (136-145)
[2018-11-21] MEDS ORDERED: Lidocaine 1% w/Epinephrine 1:100K 20 ML VIAL ONE (10:45)
[2018-11-21] MEDS ORDERED: Bupivacaine 0.25% HCL 30 ML VIAL ONE (10:45)
[2018-11-21] MEDS ORDERED: Fentanyl 250 MCG/5 ML VIAL ONE (10:54)
[2018-11-21] MEDS ORDERED: Bupivacaine HCl 0.5%/Epinephrine 1:200,000/PF 30 ml Vial ONE (13:05)
[2018-11-21] MEDS ORDERED: Glycopyrrolate 0.2 MG/ML 5 ML SYRINGE ONE (13:20)
[2018-11-21] MEDS ORDERED: Dexamethasone 20 MG/5 ML VIAL ONE (13:20)
[2018-11-21] MEDS ORDERED: Rocuronium Bromide 10 MG/ML (10ML VIAL) ONE (13:20)
[2018-11-21] MEDS ORDERED: Lidocaine 1% PF 5 ML VIAL ONE (13:20)
[2018-11-21] MEDS ORDERED: PROPOFOL 200 MG/20 ML VIAL ONE (13:20)
[2018-11-21] MEDS ORDERED: Vecuronium 10 MG VIAL ONE (13:20)
[2018-11-21] MEDS ORDERED: HYDROmorphone 2 MG/ML VIAL SLOW IVP PRN (14:44)
[2018-11-21] MEDS ORDERED: Promethazine HCl 25 MG/ML VIAL IM PRN ×2 (14:44→21:36)
[2018-11-21] MEDS ORDERED: Promethazine HCl 25 MG/ML VIAL SLOW IVP PRN (14:44)
[2018-11-21] MEDS ORDERED: Ondansetron HCl/PF 4 MG/2 ML Vial IVP PRN (14:44)
[2018-11-21] MEDS ORDERED: hydrALAZINE 20 MG/ML VIAL SLOW IVP PRN (14:56)
[2018-11-21] MEDS ORDERED: Ondansetron PF 4 MG/2 ML Vial IVP PRN ×2 (14:56→21:36)
[2018-11-21] MEDS ORDERED: traMADol HCl 50 MG TAB PO PRN ×2 (15:00)
[2018-11-21] MEDS ORDERED: Ondansetron ODT 8 MG TAB PO PRN (15:00)
[2018-11-21] MEDS ORDERED: Ondansetron ODT 8 MG TAB SL PRN (15:00)
[2018-11-21] MEDS ORDERED: Ondansetron ODT 4 MG TAB PO PRN (15:00)
[2018-11-21] MEDS ORDERED: HYDROmorphone 2 MG/ML VIAL ONE (15:19)
[2018-11-21] MEDS ORDERED: D5 1/2 NS w/20 mEq KCL 1,000 ML ONE (15:21)
[2018-11-21] MEDS ORDERED: hydrALAZINE 20 MG/ML VIAL ONE (15:54)
[2018-11-21] MEDS ORDERED: Sodium Chloride 0.9% (PF) 10 ML VIAL FS PRN (16:39)
[2018-11-21] MEDS ORDERED: Promethazine HCl 25 MG/ML VIAL ONE (16:49)
--- NOTE | 2018-11-21 17:09 | OP ---
DATE OF PROCEDURE: 11/21/2018 PREOPERATIVE DIAGNOSIS: Rectal cancers, status post neoadjuvant therapy, radiation chemotherapy. POSTOPERATIVE DIAGNOSIS: Rectal cancers, status post neoadjuvant therapy, radiation chemotherapy. PROCEDURES PERFORMED: Laparoscopic mobilization of the splenic flexure, assisted low anterior resection of rectosigmoid with 33 mm EEA stapler checked under water, no leak. Protective end ileostomy. Frozen section analysis distal margin revealed tumor free margin. ANESTHESIA: General, TAP block. ESTIMATED BLOOD LOSS: 40 mL. BLOOD TRANSFUSION: None. DESCRIPTION OF PROCEDURE: The patient was taken to the operating room, where under general anesthesia and TAP block in the dorsal lithotomy position, abdomen and perineum prepped with ChloraPrep, Betadine and draped in the routine fashion. Nguyen catheter had been placed. Incision was made at the right lateral subcostal and pneumoperitoneum to 15 mmHg was obtained with a Veress needle, replaced with a 5 port. Infraumbilical incision was made and a 5 port placed in the right lower quadrant. Left lower quadrant incision was made and a 5 port placed. Laparoscopic mobilization of the splenic flexure was undertaken freeing the gastrocolic ligament from the distal transverse colon, splenic flexure, and descending colon using the LigaSure. Abdomen was kept free of harm. Once this was mobilized off Gerota's fascia and mobilized down the pelvis, an infraumbilical incision was made and carried down through the skin, subcutaneous tissue, midline fascia, and abdominal cavity sharply. Sigmoid colon was mobilized, identifying the left ureter and gonadal vessels and keeping them free of harm. A window on the mesentery of the proximal sigmoid colon was created with LigaSure, keeping the ureters free of harm. Left colic vessels divided between clamps and ligated with 2-0 silk ties. Dissection was carried down through the pelvis, dissecting the lower sigmoid and upper rectum circumferentially dividing the lateral stalks with LigaSure. The rectal tumors located anterior left lateral and careful dissection around it, freed it from the bladder and the prostate, carrying dissection low into the pelvis. With careful persistent dissection, I was able to identify tumor free area with adequate margin and the contour stapler fired dividing the colon. The sigmoid colon was divided off mesentery, divided with the cautery, and distal margin marked and sent for frozen section analysis. The distal margin revealed a tumor free distal margin of more than 1 cm. At this point, the dilators were serially placed in the proximal colon and the EEA 33 mm anvil placed and secured with a 2-0 Prolene pursestring suture. This was tied around the anvil. The pelvis was inspected and good hemostasis noted. The anus was carefully dilated and then sequentially placed 25 mm, 28, and 31 mm sizers and then the anvil stapler. Once the stapler was placed, we visualized this through the laparotomy lower incision identifying the staple line, advancing the post from the stapler out the staple line and mating it to the proximal anvil and the proximal colon, approximating these within the torque fire range and the stapler fired, loosened, removed and the anastomosis was checked under water with air insufflation using a proctoscope in the rectum and there was no leak. The area was irrigated. Distal donut submitted for final distal margin. Abdominal cavity was inspected. Good hemostasis was noted. Sponge and instrument counts were correct. Protective diverting ileostomy was then undertaken dividing the terminal ileum leaving enough distal length for the anastomosis, creating a skin defect in the right lower quadrant overlying the rectus muscle. Subcutaneous cruciate incision was made in the fascia and the defect in the posterior fascia of peritoneum made and ileostomy brought through. Seprafilm applied. Fascia was approximated with continuous suture of #1 PDS. Skin and subcutaneous tissues were irrigated. Gloves and gowns have been changed after placement of the anvil. The skin was approximated and laparoscopic incisions closed with interrupted subdermal 4-0 Monocryl. [place] glue applied. Ileostomy matured by excising the staple line and 4 Vicky sutures of 3-0 Vicryl and simple sutures of 3-0 Vicryl with ileostomy maturation. Ileostomy appliance applied over stoma paste. The patient tolerated the procedure well. The patient was transferred to the recovery room in stable condition. Job ID: [id number]
[2018-11-21] MEDS: Acetaminophen 1,000 MG in Premix Bag 1 BAG IVPB SCH ×2 (18:19→23:46)
[2018-11-21] MEDS: Ketorolac Tromethamine 30 MG/ML VIAL IVP SCH ×2 (18:19→23:46)
[2018-11-21] MEDS: Morphine 4 MG/ML VIAL SLOW IVP PRN ×2 (18:26→20:34)
[2018-11-21] MEDS: D5 1/2 NS w/20 mEq KCL 1,000 ML IV SCH ×2 (18:30→22:31)
[2018-11-21] MEDS: Enoxaparin Sodium 40 MG/0.4 ML SYRINGE SC SCH (19:59)
[2018-11-21] MEDS ORDERED: fentaNYL Citrate/PF 2,000 MCG in Sodium Chloride 0.9% 60 ML IV PRN (21:36)
[2018-11-21] MEDS ORDERED: Naloxone HCl 0.4 mg/ml Vial IV PRN (21:36)
[2018-11-21] MEDS ORDERED: diphenhydrAMINE 25 MG CAP PO PRN (21:36)
[2018-11-21] MEDS ORDERED: diphenhydrAMINE 50 MG/ML VIAL IVP PRN (21:36)
[2018-11-21] MEDS ORDERED: diphenhydrAMINE 50 MG/ML VIAL IM PRN (21:36)
[2018-11-21] MEDS ORDERED: Zolpidem Tartrate 5 MG TAB PO PRN (21:36)
[2018-11-21] MEDS ORDERED: Communication Order-Pharmacy FS SCH (21:45)
[2018-11-22] MEDS: Acetaminophen 1,000 MG in Premix Bag 1 BAG IVPB SCH ×2 (05:09→12:07)
[2018-11-22] MEDS: Ketorolac Tromethamine 30 MG/ML VIAL IVP SCH ×2 (05:09→12:06)
[2018-11-22 05:59] LABS: #Lymphocytes 0.7 thou/uL (1.20-3.40); #Monocytes 0.8 thou/uL (0.11-0.59); #Neutrophils 8.6 thou/uL (1.40-6.50); %Basophils 0.1 % (0.0-1.0); %Eosinophils 0.2 % (0.0-10.0); %Lymphocytes 6.5 % (21.0-51.0); %Monocytes 7.6 % (0.0-10.0); %Neutrophils 85.6 % (42.0-75.0); Hemoglobin 12.6 g/dL (14.0-18.0); Mean Corpuscular HGB CONC 33.1 g/dL (32.0-36.0); Mean Corpuscular Hemoglobin 29.8 pg (27.0-31.0); Mean Corpuscular Volume 90.1 fL (78.0-98.0); Mean Platelet Volume 7.2 fL (7.4-10.4); Platelet Count 188 thou/uL (130-400); RBC Distribution Width 13.3 % (11.5-14.5); Red Blood Cell (RBC) Count 4.24 mill/uL (4.70-6.10); White Blood Cell (WBC) Count 10.1 thou/uL (4.8-10.8)
[2018-11-22 06:14] LABS: Anion Gap 14 mmol/L (10-20); BUN (Urea Nitrogen) 12 mg/dL (8.4-25.7); Calc. Creatinine Clearance 118 mL/min (70-130); Calcium 9.4 mg/dL (7.8-10.44); Carbon Dioxide 22 mmol/L (22-29); Chloride 104 mmol/L (98-107); Estimated GFR-MDRD Greater than 90; Glucose 121 mg/dL (70-105); Potassium 4.4 mmol/L (3.5-5.1); Sodium 136 mmol/L (136-145)
[2018-11-22] MEDS: D5 1/2 NS w/20 mEq KCL 1,000 ML IV SCH ×2 (06:50→18:49)
[2018-11-22] MEDS ORDERED: Pantoprazole 40 MG VIAL IVP SCH (09:00)
[2018-11-22] MEDS ORDERED: D5 1/2 NS w/20 mEq KCL 1,000 ML IV SCH (17:10)
--- NOTE | 2018-11-22 17:22 | PRG ---
DATE OF SERVICE: 11/22/2018 SUBJECTIVE: Mr. Austin is doing well today. He required a PEST LOCATOR for pain control and that has worked very effectively for him. OBJECTIVE: VITAL SIGNS: Temperature 98.8 degrees, pulse 69, respiratory rate 18, blood pressure 157/87. Urine output, this has been good. Nguyen catheter removed this morning. He is voiding on his own. LUNGS: Clear to auscultation. CARDIAC: Regular rate and rhythm. No murmur or gallop. ABDOMEN: Soft. Ileostomy healthy. Good bowel sounds. Surgical wounds look good. LABORATORY DATA: White count 10, hemoglobin 12. Basic metabolic profile normal. Pathology report pending. ASSESSMENT AND PLAN: The patient is doing well. We would recommend advancing his diet, saline lock and TKO when he is on IVs for his PEST LOCATOR. We will plan and stop his PEST LOCATOR in the morning, 0600 hours, change him to oral analgesics and possible discharge home tomorrow. Wound care, stomal therapy, teach him ileostomy care. Job ID: [id number]
[2018-11-22] MEDS: Acetaminophen 500 MG TAB PO SCH (17:41)
[2018-11-22] MEDS: Enoxaparin Sodium 40 MG/0.4 ML SYRINGE SC SCH (20:31)
[2018-11-22] MEDS: Gabapentin 300 MG CAP PO SCH (20:31)
[2018-11-22] MEDS: Ibuprofen 200 MG TAB PO PRN (20:44)
[2018-11-23] MEDS: Acetaminophen 500 MG TAB PO SCH ×3 (00:35→11:26)
[2018-11-23] MEDS ORDERED: traMADol HCl 50 MG TAB PO PRN (06:00)
[2018-11-23] MEDS: traMADol HCl 50 MG TAB PO PRN ×2 (07:10→13:22)
[2018-11-23] MEDS: Gabapentin 300 MG CAP PO SCH (09:10)
[2018-11-23] MEDS: Ibuprofen 200 MG TAB PO PRN (11:26)
[2018-11-23 12:00] VITALS: BP 154/94; TEMP 98.2
--- NOTE | 2018-11-23 14:21 | PRG ---
DATE OF SERVICE: 11/23/2018 SUBJECTIVE: Mr. Austin is doing well today. His pain is under good control. 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 He is tolerating his regular diet. OBJECTIVE: VITAL SIGNS: Temperature 98.2, pulse 72, blood pressure 154/94. LUNGS: Clear to auscultation. CARDIAC: Regular rhythm without murmur or gallop. ABDOMEN: Soft, distended. Ileostomy healthy. Midline wound well healed. LABORATORY DATA: Laboratories none this morning. ASSESSMENT AND PLAN: Rectal cancer, status post neoadjuvant therapy, radiation and chemotherapy, now undergoing laparoscopic-assisted low anterior resection with protected diverting ileostomy. Pathology is pending. The patient is ready for discharge at this time. He will be discharged home. Avoid lifting over 25 pounds for 4 to 6 weeks. He will see me in my office in approximately a week and half to two weeks and also see Dr. Parsons, Oncology. He will probably need postop chemotherapy. Job ID: [id number]
--- NOTE | 2018-11-23 14:30 | DIS ---
DATE OF ADMISSION: 11/21/2018 DATE OF DISCHARGE: 11/23/2018 DISCHARGE DIAGNOSES: 1. Rectal cancer status post neoadjuvant chemo radiation therapy, Dr. Parsons. 2. This hospitalization patient underwent laparoscopic-assisted low anterior resection with a 33 mm EEA stapler with a protective diverting ileostomy. LABORATORY DATA: Discharge hemoglobin 12, white count 10. Basic metabolic profile is normal. BUN 12, creatinine 0.84. HOSPITAL COURSE: The patient did not require any transfusions. He underwent a bowel prep at home, admitted, underwent a laparoscopic mobilization of the splenic flexure and left colon, had a lower midline incision for a low anterior resection with 33 mm colorectal anastomosis with a protective diverting ileostomy. He had general anesthesia and a TAP block. Postoperatively, he required a PIPE STRIPPER, which was discontinued the morning to discharge. His pain is well controlled on oral analgesics. He is discharged home to follow up with Dr. Cunningham and Dr. Parsons, in about a week and half to 2 weeks. No lifting over 25 pounds, otherwise regular diet. He was instructed by the stoma therapist, stoma care as well as given ileostomy supplies. Plan is to reverse his ileostomy in 8 to 12 weeks. Job ID: [id number]
[2018-11-24] MEDS ORDERED: Ibuprofen 600 MG TAB PO PRN (09:00)
== END 2018-11-23 15:20 | disposition home or self-care (01) | DRG 334 ==
LOC: SURG A 11-21 07:48
PROVIDERS: ADMIT Specialist; ATTEND Specialist
PROC: 0DBP4ZZ Excision of Rectum, Percutaneous Endoscopic Approach (ICD-10-PCS; principal; 2018-11-21)
DX: C20 Malignant neoplasm of rectum (principal); Z92.21 Personal history of antineoplastic chemotherapy; Z92.3 Personal history of irradiation; Z87.442 Personal history of urinary calculi; Z80.0 Family history of malignant neoplasm of digestive organs
CPT/HCPCS: 36415; 36416; 80048; 83036; 85025; 88309; 88331; 93005; C9113; J0131; J0360; J0670; J1100; J1170; J1642; J1650; J1885; J2001; J2185; J2250; J2270; J2405; J2550; J2704; J3010; J7050; S0020

== ENCOUNTER 2018-11-16 06:44 | Outpatient (CLI) | payer OTHER ==
--- NOTE | 2018-11-21 12:44 | EKG ---
Test Reason : Blood Pressure : / mmHG Vent. Rate : 058 BPM Atrial Rate : 058 BPM P-R Int : 194 ms QRS Dur : 088 ms QT Int : 384 ms P-R-T Axes : 048 034 036 degrees QTc Int : 376 ms Sinus bradycardia Otherwise normal ECG Confirmed by DR. Ry BOOTHE ([id number]) on 11/21/2018 12:44:23 PM Referred By: PATRICIA Confirmed By:DR. Ry BOOTHE
== END 2018-11-16 06:45 | disposition home or self-care (01) ==
LOC: LABBT 06:44 → SDC 06:45
PROVIDERS: ATTEND Specialist
DX: Z01.810 Encounter for preprocedural cardiovascular examination (principal); C20 Malignant neoplasm of rectum
CPT/HCPCS: 93005; 93010

== ENCOUNTER 2018-11-25 23:29 | Inpatient (IN) | payer OTHER, SELFPAY ==
[2018-11-26] MEDS ORDERED: Morphine 4 MG/ML VIAL ONE ×2 (00:44→03:19)
[2018-11-26] MEDS ORDERED: Ondansetron PF 4 MG/2 ML Vial ONE ×2 (00:44→04:07)
[2018-11-26 01:04] LABS: #Eosinphils 0.2 thou/uL (0.0-0.7); #Lymphocytes 0.9 thou/uL (1.20-3.40); #Monocytes 0.5 thou/uL (0.11-0.59); #Neutrophils 6.9 thou/uL (1.40-6.50); %Basophils 0.4 % (0.0-1.0); %Lymphocytes 10.5 % (21.0-51.0); %Monocytes 5.6 % (0.0-10.0); %Neutrophils 81.6 % (42.0-75.0); Hemoglobin 13.2 g/dL (14.0-18.0); Mean Corpuscular Hemoglobin 29.5 pg (27.0-31.0); Mean Corpuscular Volume 89.3 fL (78.0-98.0); Mean Platelet Volume 7.6 fL (7.4-10.4); Platelet Count 236 thou/uL (130-400); RBC Distribution Width 13.2 % (11.5-14.5); Red Blood Cell (RBC) Count 4.48 mill/uL (4.70-6.10); White Blood Cell (WBC) Count 8.5 thou/uL (4.8-10.8)
[2018-11-26 01:27] LABS: ALT (SGPT) 48 U/L (8-55); AST (SGOT) 43 U/L (5-34); Albumin 4.1 g/dL (3.5-5.0); Alkaline Phosphatase 99 U/L (40-150); Anion Gap 12 mmol/L (10-20); BUN (Urea Nitrogen) 20 mg/dL (8.4-25.7); Bilirubin, Total 1.1 mg/dL (0.2-1.2); Calc. Creatinine Clearance 0 mL/min (70-130); Carbon Dioxide 23 mmol/L (22-29); Chloride 105 mmol/L (98-107); Estimated GFR-MDRD Greater than 90; Globulin 3.4 g/dL (2.4-3.5); Glucose 114 mg/dL (70-105); Lipase 6 U/L (8-78); Potassium 3.2 mmol/L (3.5-5.1); Protein, Total 7.5 g/dL (6.0-8.3); Sodium 137 mmol/L (136-145)
[2018-11-26 02:15] LABS: Bilirubin Negative (Negative); Blood, Urine Negative (Negative); Clarity CLEAR (Clear); Glucose, Urine (Dipstick) Negative (Negative); Leukocyte Negative (Negative); Nitrite Negative (Negative); Protein, Urine (Dipstick) Negative (Neg-Trace); Urobilinogen 0.2 mg/dL (0.2-1.0); pH, Urine 5.5 (5.0-9.0)
[2018-11-26 02:19] LABS: Specific Gravity, Urine Greater than 1.060 (1.002-1.036)
[2018-11-26] MEDS ORDERED: Potassium Chloride 20 MEQ/100 ML PREMIX BAG ONE (03:49)
[2018-11-26] MEDS ORDERED: Lorazepam 2 MG/ML VIAL ONE (04:44)
[2018-11-26 05:40] VITALS: BMI 23.6
[2018-11-26] MEDS ORDERED: Ondansetron ODT 4 MG TAB SL PRN ×2 (06:04→16:40)
[2018-11-26] MEDS ORDERED: Sodium Chloride 0.9% 1,000 ML IV SCH (06:04)
[2018-11-26] MEDS ORDERED: Ondansetron PF 4 MG/2 ML Vial IVP PRN (06:04)
[2018-11-26] MEDS ORDERED: Morphine 4 MG/ML VIAL SLOW IVP PRN (06:05)
[2018-11-26] MEDS: Morphine 4 MG/ML VIAL SLOW IVP PRN ×5 (06:16→21:09)
--- NOTE | 2018-11-26 08:12 | RAD ---
2 VIEWS CHEST: Date: 11/26/18 COMPARISON: CT abdomen/pelvis dated 11/26/18. HISTORY: Abdominal pain and chest pain. FINDINGS: Single view of the chest shows normal sized cardiomediastinal silhouette. The MediPort is unchanged i n position. There is free air beneath the right hemidiaphragm. This is stable compared to the finding s on CT. There is no evidence of consolidation, mass, or pleural effusion. IMPRESSION: Free air beneath the right hemidiaphragm suggests either recent surgery or bowel perforation. POS: [facility]
[2018-11-26] MEDS: Enoxaparin Sodium 40 MG/0.4 ML SYRINGE SC SCH (08:42)
--- NOTE | 2018-11-26 08:46 | RAD ---
KUB: DATE: 11/26/18 COMPARISON: None. HISTORY: Mass removed from colon on 11/21/18 with colostomy placement. Nausea, vomiting, and abdominal pain. FINDINGS: Single view of the abdomen shows air-filled loops of small bowel. This may be secondary to ileus or s mall bowel obstruction. A NG tube is seen in the left upper quadrant of the abdomen. IMPRESSION: Dilated air-filled loops of small bowel may be secondary to ileus or partial small bowel obstruction. POS: [facility]
--- NOTE | 2018-11-26 08:57 | CT ---
PRELIMINARY REPORT/[facility]/EMERGENTY AFTER-HOURS PROCEDURE CT Abdomen and Pelvis With Contrast EXAM DATE/TIME: 11/26/2018 1:13 AM CLINICAL HISTORY: 58 years old, male; Pain; Abdominal pain; Acute; Prior surgery; Surgery date: 3-7 days postoperative; Patient HX: 58 yo male presents for evaluation of abdominal pain and bloating. Patient had colon res ection last week on 11/21/[address] Cunningham. Patient states that his pain was well controlled. However, over the last day he has had decreased output from his ostomy with increased pain. He descri bes the pain as crampy. He states that he has felt nauseated as well. Patient denies fever or bloody output from his ostomy site TECHNIQUE: Axial computed tomography images of the abdomen and pelvis with intravenous contrast. Coronal reformatted images were created and reviewed. COMPARISON: No relevant prior studies available. FINDINGS: Tubes, catheters and devices: Partially visualized central venous catheter in the lower superior vena cava. Lower thorax: No acute findings. ABDOMEN: Liver: Normal. Gallbladder and bile ducts: Normal. Pancreas: Normal. Spleen: Normal. Adrenals: Normal. Kidneys and ureters: Normal. Stomach and bowel: Surgical changes of distal sigmoid colon anastomosis and right lower quadrant ente rostomy. Several loops of mildly dilated, gas and fluid-filled mid small bowel, without focal transit ion to normal caliber small bowel identified. Appendix: No evidence of appendicitis. PELVIS: Bladder: Unremarkable as visualized. Reproductive: Unremarkable as visualized. ABDOMEN and PELVIS: Intraperitoneal space: Moderate amount of free intraperitoneal gas, within expected limits for recent surgery. Small amount of slightly hyperattenuating free fluid within the pelvis, compatible small amount of hemorrhage, likely related to recent surgery. No evidence of active hemorrhage identified. Bones/joints: Mild dextroscoliosis of the lumbar spine. Soft tissues: Normal. Vasculature: Atherosclerotic disease of the abdominal aorta and iliac arteries. Lymph nodes: Normal. No enlarged lymph nodes. IMPRESSION: 1. Several loops of mildly dilated, gas and fluid-filled mid small bowel, without focal transition to normal caliber small bowel identified. Findings most compatible with ileus or partial small bowel ob struction. Recommend followup. 2. Moderate amount of free intraperitoneal gas, within expected limits for recent surgery. 3. Small amount of slightly hyperattenuating free fluid within the pelvis, compatible small amount of hemorrhage, likely related to recent surgery. No evidence of active hemorrhage identified. Thank you for allowing us to participate in the care of your patient. Dictated and Authenticated by: Curtis Huber MD 11/26/2018 1:52 AM Central Time ([place] & [place]) FINAL REPORT EMERGENCY AFTER HOURS CT OF THE ABDOMEN AND PELVIS WITH CONTRAST: DATE: 11/26/18 FINDINGS/IMPRESSION: I agree with the findings and impression given in the preliminary report per [facility] physician. There ar e dilated loops of small bowel consistent with either ileus or partial small bowel obstruction. There is free air in the abdomen which may be from recent surgery or secondary to bowel/viscus perforation . Correlate with surgical history. CODE T. POS: [facility]
--- NOTE | 2018-11-26 09:26 | RAD ---
ABDOMEN 2 VIEWS: Date: 11/26/18 HISTORY: Postop ileus. COMPARISON: Radiograph same date. FINDINGS: An enteric tube is in place, side port below GE junction. There is moderate volume pneumoperitoneum. Dilated loops of small bowel in left upper quadrant are similar. IMPRESSION: 1. Satisfactory placement of enteric tube. 2. Postoperative ileus. 3. Moderate pneumoperitoneum. POS: [facility]
[2018-11-26] MEDS ORDERED: ISOVUE-370 76%-LOCM 1 ML ONE (10:55)
[2018-11-26] MEDS: Potassium Chloride 20 MEQ in Lactated Ringer's 1,000 ML IV SCH ×3 (12:14→20:57)
--- NOTE | 2018-11-26 12:15 | HP ---
HISTORY OF PRESENT ILLNESS: Martinez Austin Junior is a 58-year-old male patient, status post MediPort placement, neoadjuvant chemoradiation therapy, completing this in August, he procrastinated definitive surgical care due to personal reasons and illness in the family, but more recently underwent on 11/21/2018, laparoscopic assisted with splenic flexure mobilization, left colon mobilization, low anterior resection with colorectal anastomosis with 33 mm EEA stapler checked under water without leak. Pathology revealed N0 M0 disease with tumor size, good response to neoadjuvant therapy, shrinking down to 2 x 1.5 cm, 1 cm from the distal margin plus 2 staple lines. There was residual cancer with evident tumor regression, but more than single cell cancer cells partial response, score 2, mucin penetrates beyond the muscularis propria into the pericolorectal adipose tissue. YpT3 viable tumor cells 2%, lymphovascular invasion absent. Margins more than 2 cm (second staple line not submitted to pathology), 5 pericolonic lymph nodes negative and negative for treatment findings. The patient went home on 11/23/2018, but began having on 11/24, Monday, episode of emesis, but did well with some ileostomy output until yesterday, Monday11/25/2017, when he had nausea and vomiting, presented to the emergency room. Abdominal x-rays and CAT scan suggested ileus findings. Ileostomy output had diminished. He was admitted. CAT scan did not reveal gastric distention unless NG tube is in place with minimal output. Initial abdominal x-ray revealed side hole of the NG tube barely beyond the gastroesophageal junction and it was advanced 10 cm and repeat abdominal x-rays obtained revealing better placement of the NG tube. The patient's CBC, comprehensive metabolic profile on readmission are normal. As expected, he does not have any stool or gas in the colon because of a total diverting end ileostomy. ALLERGIES: NONE. TOBACCO: None. ALCOHOL: None. REVIEW OF SYSTEMS: Noncontributory. PAST SURGICAL AND MEDICAL HISTORY: See previous recent history and physical. PHYSICAL EXAMINATION: VITAL SIGNS: 6 feet, 23 BMI, 97.8, 70, 18, and 132/86. HEAD, EARS, EYES, NOSE, AND THROAT: Unremarkable. LUNGS: Clear to auscultation. CARDIAC: Regular rate and rhythm without murmur or gallop. ABDOMEN: Soft mild distended. Mild tympany. Good bowel sounds present. Ileostomy healthy with some stool in the ileostomy. LABORATORY DATA: White count of 8, hemoglobin 13. Comprehensive metabolic profile, normal. CAT scan of the abdomen and pelvis obtained at 0:30 a.m. this morning 09/25/2019 reveals normal liver reveals several loops of mildly dilated gas-filled small bowel loops without focal transition to normal caliber, small bowel identified compatible with ileus. Postoperative changes in the pelvis. ASSESSMENT AND PLAN: Ileus post low anterior resection with total diverting ileostomy. Continue NG tube suction. Repeat abdominal x-rays tomorrow. He can have sips and chips. Increase activity. DVT prophylaxis. Await ileus resolution. Job ID: [id number]
[2018-11-26] MEDS ORDERED: Chloraseptic Spray 180 ml Bottle PO PRN (13:13)
[2018-11-26] MEDS ORDERED: Cepastat Lozenges 1 LOZ PO PRN (13:13)
[2018-11-26] MEDS: Lorazepam 2 MG/ML VIAL SLOW IVP PRN (16:40)
[2018-11-26] MEDS: Ondansetron PF 4 MG/2 ML Vial IVP PRN ×2 (18:51→21:09)
[2018-11-26] MEDS ORDERED: Ondansetron ODT 8 MG TAB SL PRN (20:39)
[2018-11-26] MEDS ORDERED: Promethazine HCl 25 MG SUPP PR PRN (20:39)
[2018-11-26] MEDS ORDERED: Ondansetron ODT 8 MG TAB PO PRN (20:39)
[2018-11-26] MEDS ORDERED: Promethazine HCl 25 MG/ML VIAL IM/IV PRN (20:39)
[2018-11-27] MEDS: Morphine 4 MG/ML VIAL SLOW IVP PRN ×5 (00:47→22:51)
[2018-11-27 04:49] LABS: #Eosinphils 0.4 thou/uL (0.0-0.7); #Lymphocytes 0.8 thou/uL (1.20-3.40); #Monocytes 0.8 thou/uL (0.11-0.59); #Neutrophils 6.3 thou/uL (1.40-6.50); %Basophils 0.5 % (0.0-1.0); %Eosinophils 4.4 % (0.0-10.0); %Lymphocytes 9.5 % (21.0-51.0); %Monocytes 9.1 % (0.0-10.0); %Neutrophils 76.5 % (42.0-75.0); Mean Corpuscular HGB CONC 32.9 g/dL (32.0-36.0); Mean Corpuscular Hemoglobin 29.5 pg (27.0-31.0); Mean Corpuscular Volume 89.6 fL (78.0-98.0); Mean Platelet Volume 7.2 fL (7.4-10.4); Platelet Count 220 thou/uL (130-400); RBC Distribution Width 13.4 % (11.5-14.5); Red Blood Cell (RBC) Count 4.07 mill/uL (4.70-6.10); White Blood Cell (WBC) Count 8.3 thou/uL (4.8-10.8)
[2018-11-27 05:09] LABS: ALT (SGPT) 27 U/L (8-55); AST (SGOT) 18 U/L (5-34); Alkaline Phosphatase 100 U/L (40-150); Anion Gap 14 mmol/L (10-20); BUN (Urea Nitrogen) 20 mg/dL (8.4-25.7); Bilirubin, Total 1.3 mg/dL (0.2-1.2); Calc. Creatinine Clearance 111 mL/min (70-130); Calcium 9.5 mg/dL (7.8-10.44); Carbon Dioxide 26 mmol/L (22-29); Chloride 103 mmol/L (98-107); Estimated GFR-MDRD Greater than 90; Globulin 3.2 g/dL (2.4-3.5); Glucose 98 mg/dL (70-105); Protein, Total 7.2 g/dL (6.0-8.3); Sodium 139 mmol/L (136-145)
[2018-11-27] MEDS: Enoxaparin Sodium 40 MG/0.4 ML SYRINGE SC SCH (08:45)
[2018-11-27] MEDS: Potassium Chloride 20 MEQ in Lactated Ringer's 1,000 ML IV SCH (08:46)
--- NOTE | 2018-11-27 09:31 | RAD ---
ABDOMEN TWO VIEWS: HISTORY: Postop ileus. COMPARISON: Radiograph from the prior day. FINDINGS: Pneumoperitoneum is similar. Enteric tube is similar. There are dilated loops of small bowel throug hout the abdomen. There is concern for some early pneumatosis in the left upper quadrant of the abdo men. IMPRESSION: 1. Mild increased pneumoperitoneum. 2. Suggestion of pneumatosis, left upper quadrant small bowel loops. Recommend correlation with lac tic acid levels. POS: [facility]
[2018-11-27] MEDS: Ondansetron PF 4 MG/2 ML Vial IVP PRN (10:28)
[2018-11-27] MEDS ORDERED: Glycopyrrolate 0.2 MG/ML 5 ML SYRINGE ONE (14:24)
[2018-11-27] MEDS ORDERED: Dexamethasone 20 MG/5 ML VIAL ONE (14:24)
[2018-11-27] MEDS ORDERED: Lidocaine 1% PF 5 ML VIAL ONE (14:24)
[2018-11-27] MEDS ORDERED: Rocuronium Bromide 10 MG/ML (10ML VIAL) ONE (14:24)
[2018-11-27] MEDS ORDERED: Ondansetron PF 4 MG/2 ML Vial ONE (14:24)
[2018-11-27] MEDS ORDERED: PROPOFOL 200 MG/20 ML VIAL ONE (14:24)
[2018-11-27] MEDS ORDERED: Ketorolac Tromethamine 30 MG/ML VIAL ONE (14:24)
[2018-11-27] MEDS ORDERED: cefOXitin 2 GM in Sodium Chloride 0.9% 100 ML IVPB SCH (15:30)
--- NOTE | 2018-11-27 16:35 | PRG ---
DATE OF SERVICE: 11/27/2018 SUBJECTIVE: Martinez Austin is doing very well although having abdominal pain and acquiring nausea just disconnecting from his NG tube to get his abdominal x-rays. He experienced quite a bit of nausea until he was reconnected to his NG tube suction. Vital signs; temperature 98.3 degrees, pulse 76, blood pressure 133/84. This morning, his white count is 8 and hemoglobin is 12. Basic metabolic profile is normal. Abdominal x-rays today revealed distended air-fluid levels. He has not had any significant output out of his ileostomy. There is a consideration for pneumatosis and small bowel loops. Abdomen is soft and nontender, although slightly distended and tympanitic. Ileostomy is healthy. ASSESSMENT AND PLAN: Postoperative small bowel obstruction with protective diverting ileostomy. We would recommend laparoscopy. We will plan that today. Job ID: [id number]
[2018-11-27] MEDS ORDERED: Bupivacaine HCl 0.5%/Epinephrine 1:200,000/PF 30 ml Vial ONE (17:25)
[2018-11-27] MEDS ORDERED: Fentanyl 100 MCG/2 ML VIAL ONE ×2 (18:23→19:07)
[2018-11-27] MEDS ORDERED: Midazolam HCl 2 mg/2 ml Vial ONE (19:17)
[2018-11-27] MEDS ORDERED: Ondansetron HCl/PF 4 MG/2 ML Vial IVP PRN (20:39)
[2018-11-27] MEDS ORDERED: Promethazine HCl 25 MG/ML VIAL IM PRN (20:39)
[2018-11-27] MEDS ORDERED: Promethazine HCl 25 MG/ML VIAL SLOW IVP PRN (20:39)
[2018-11-27] MEDS: Ketorolac Tromethamine 30 MG/ML VIAL IVP SCH (22:51)
[2018-11-27] MEDS ORDERED: Acetaminophen 1,000 MG in Premix Bag 1 BAG IVPB SCH (23:59)
--- NOTE | 2018-11-28 01:21 | OP ---
DATE OF PROCEDURE: 11/27/2018 PREOPERATIVE DIAGNOSIS: Protective ileostomy, readmission for bowel obstruction with pneumatosis by plain films. POSTOPERATIVE DIAGNOSES: Protective ileostomy, readmission for bowel obstruction with pneumatosis by plain films, with dilated small bowel without mechanical obstruction. PROCEDURE: Diagnostic laparoscopy without mechanical obstruction. ANESTHESIA: Local of 0.5% Marcaine with epinephrine, general anesthesia. DESCRIPTION OF PROCEDURE: The patient was taken to the operating room, where under general anesthesia, abdomen was prepared with ChloraPrep and draped in routine fashion. Left lateral incision was made. Pneumoperitoneum to 15 mmHg was obtained. The Veress needle replaced with a 5 port and the laparoscope was inserted. There was no essential adhesions. Left mid lateral abdominal incision was made and a 5 port placed, left lower quadrant lateral incision was made and a 5 port placed and video laparoscope moved to this lower port site. Small bowel was run from the ileostomy to the ligament of Treitz and from the ligament Treitz to the ileostomy, and there was no mechanical obstruction. There was no torsion. After completion of the procedure, digital exam of the ileostomy revealed patency without obstruction. The irrigant and pneumoperitoneum were evacuated. Good hemostasis noted. Skin incisions were approximated with interrupted subdermal 4-0 Monocryl and Hoskins glue applied. Note, this laparoscopy was carried out because plain x-rays of abdominal films suggested pneumatosis and because of the patient's abdominal pain, but no mechanical obstruction found. Job ID: [id number]
[2018-11-28] MEDS: Morphine 4 MG/ML VIAL SLOW IVP PRN ×4 (02:22→11:10)
[2018-11-28] MEDS: Ketorolac Tromethamine 30 MG/ML VIAL IVP SCH ×3 (05:11→17:19)
[2018-11-28] MEDS: Potassium Chloride 20 MEQ in Lactated Ringer's 1,000 ML IV SCH ×4 (05:12→15:25)
[2018-11-28 05:35] LABS: #Lymphocytes 0.6 thou/uL (1.20-3.40); #Monocytes 0.5 thou/uL (0.11-0.59); #Neutrophils 8.6 thou/uL (1.40-6.50); %Basophils 0.1 % (0.0-1.0); %Eosinophils 0.2 % (0.0-10.0); %Lymphocytes 6.3 % (21.0-51.0); %Monocytes 5.3 % (0.0-10.0); %Neutrophils 88.2 % (42.0-75.0); Hemoglobin 11.2 g/dL (14.0-18.0); Mean Corpuscular HGB CONC 32.8 g/dL (32.0-36.0); Mean Corpuscular Hemoglobin 29.3 pg (27.0-31.0); Mean Corpuscular Volume 89.5 fL (78.0-98.0); Mean Platelet Volume 7.6 fL (7.4-10.4); Platelet Count 206 thou/uL (130-400); RBC Distribution Width 13.2 % (11.5-14.5); Red Blood Cell (RBC) Count 3.81 mill/uL (4.70-6.10); White Blood Cell (WBC) Count 9.7 thou/uL (4.8-10.8)
[2018-11-28 06:10] LABS: Anion Gap 13 mmol/L (10-20); BUN (Urea Nitrogen) 19 mg/dL (8.4-25.7); Calc. Creatinine Clearance 110 mL/min (70-130); Calcium 9.1 mg/dL (7.8-10.44); Carbon Dioxide 24 mmol/L (22-29); Chloride 104 mmol/L (98-107); Estimated GFR-MDRD Greater than 90; Glucose 116 mg/dL (70-105); Potassium 4.3 mmol/L (3.5-5.1); Sodium 137 mmol/L (136-145)
[2018-11-28] MEDS: Enoxaparin Sodium 40 MG/0.4 ML SYRINGE SC SCH (08:33)
--- NOTE | 2018-11-28 09:19 | RAD ---
ABDOMEN AND PELVIS UPRIGHT AND SUPINE FRONTAL IMAGIN11/28/2018 HISTORY: Postoperative patient. Ileus. COMPARISON: 11/27/2018 FINDINGS: There is a nasogastric tube extending into the left upper quadrant, SidePort near the expected locati on of the gastroesophageal junction. Upright imaging demonstrates small volume free intraperitoneal air, less prominent than on the prior exam. There is persistent diffuse small bowel gaseous distenti on with air-fluid level seen on upright imaging. There is a suture line overlying the lower midline pelvis. IMPRESSION: 1. Small volume pneumoperitoneum, as seen on prior imaging. 2. Persistent dilated small bowel throughout the abdomen/pelvis, suggesting ileus or small bowel obs truction. POS: [facility]
--- NOTE | 2018-11-28 12:56 | PRG ---
DATE OF SERVICE: SUBJECTIVE: Martinez Austin is doing well today. He feels much better. Laparoscopy yesterday revealed ileus type findings. No mechanical obstruction. There is no evidence of pneumatosis intestinalis as suggested by plain x-rays preoperatively. OBJECTIVE: Temperature 98.3 degrees, pulse 65, and blood pressure 108/61. Gastric output drain is 750 mL per NG tube. Urine output 500 mL. Nguyen catheter has been removed. He is voiding on his own. He is going frequently. LABORATORY DATA: White count 9, hemoglobin 11.2. Basic metabolic profile normal. ASSESSMENT AND PLAN: 1. Ileus. The patient's bowel function is improving. He has already emptied his ileostomy bag twice this morning. Given the fact that he feels much better and his abdomen is less distended, I will remove his NG tube. I have talked to him about taking only scant liquids and avoiding carbonated beverages and that if he feels reflux or belching or indigestion or distention, then he stop his oral intake to avoid replacing the NG tube. He is agreeable. We will remove his NG tube today. Advance diet slowly per GI function. 2. Rectal cancer. Good response to neoadjuvant therapy, status post low anterior resection and a 33 mm EEA stapler performed on 11/21/2018, 6 days ago. Job ID: [id number]
[2018-11-28] MEDS: Acetaminophen 1,000 MG in Premix Bag 1 BAG IVPB SCH ×2 (17:19→23:08)
[2018-11-28] MEDS: Simethicone Chewable 80 MG TAB PO PRN (21:56)
[2018-11-29] MEDS: Potassium Chloride 20 MEQ in Lactated Ringer's 1,000 ML IV SCH ×2 (00:41→06:26)
[2018-11-29] MEDS: Lorazepam 2 MG/ML VIAL SLOW IVP PRN (00:57)
[2018-11-29] MEDS: Ketorolac Tromethamine 30 MG/ML VIAL IVP SCH ×4 (02:10→21:21)
[2018-11-29] MEDS: Acetaminophen 1,000 MG in Premix Bag 1 BAG IVPB SCH ×3 (06:26→17:48)
[2018-11-29] MEDS: Enoxaparin Sodium 40 MG/0.4 ML SYRINGE SC SCH (08:01)
[2018-11-29] MEDS: Simethicone Chewable 80 MG TAB PO PRN ×2 (08:03→11:49)
[2018-11-29] MEDS ORDERED: traMADol HCl 50 MG TAB PO PRN (08:39)
--- NOTE | 2018-11-29 09:20 | RAD ---
TWO VIEWS ABDOMEN: Technique: Supine and upright views of the abdomen obtained. Indication: Follow up ileus. Comparison: 11-28-18 FINDINGS: There continues to be gas filled dilated loops of small bowel throughout the abdomen. Scattered gas a nd stool in the colon without colon distention. No evidence of free air. IMPRESSION: Persistent gas filled dilated loops of small bowel consistent with persistent ileus or small bowel ob struction. POS: [facility]
[2018-11-29] MEDS: traMADol HCl 50 MG TAB PO PRN ×2 (12:33→18:35)
--- NOTE | 2018-11-29 14:32 | PRG ---
DATE OF SERVICE: 11/29/2018 SUBJECTIVE: Mr. Austin is doing well today. He is tolerating a diet. He is complaining of gas pains. He is having abundant ileostomy output. OBJECTIVE: VITAL SIGNS: Temperature 98.1 degrees, heart rate 75, and blood pressure 134/84. He has not had any nausea or vomiting. LUNGS: Clear to auscultation. CARDIAC: Rhythm rate and rhythm without murmur or gallop. ABDOMEN: Soft. Good bowel sounds. Ileostomy healthy with good output. LABORATORY DATA: White count 9.7 yesterday. Hemoglobin 11.2 yesterday. Basic metabolic profile was normal yesterday. ASSESSMENT AND PLAN: Resolving ileus with functional ileostomy. Advance diet slowly. Saline lock. Hopefully, he will be ready for discharge in the next day or two. Job ID: [id number]
[2018-11-29] MEDS: Ondansetron PF 4 MG/2 ML Vial IVP PRN (16:08)
[2018-11-30] MEDS: Acetaminophen 1,000 MG in Premix Bag 1 BAG IVPB SCH ×3 (00:12→11:52)
[2018-11-30] MEDS: Ketorolac Tromethamine 30 MG/ML VIAL IVP SCH ×2 (02:42→08:38)
[2018-11-30] MEDS: Enoxaparin Sodium 40 MG/0.4 ML SYRINGE SC SCH (08:38)
[2018-11-30] MEDS: Simethicone Chewable 80 MG TAB PO PRN (10:13)
[2018-11-30] MEDS: traMADol HCl 50 MG TAB PO PRN (13:26)
[2018-11-30 15:59] VITALS: BP 120/77; TEMP 98.4
--- NOTE | 2018-12-27 06:46 | PQF ---
CLIFFORD PEARCE JR, RICHARD D MD [id number] SURG A- [id number] CLINICAL DOCUMENTATION CLARIFICATION FORM: POST DISCHARGE DATE: 12/27/2018 ATTN: Dr. Cunningham Please exercise your independent, professional judgment in responding to the clarification form. Clinical indicators are provided on the bottom of this form for your review Please check appropriate box(s): [ ] Ileus is a postoperative complication related to recent surgery [ ] Ileus is not a postoperative complication related to recent surgery [ ] Other diagnosis (please specify) [ ] Unable to determine In addition, please specify: Present on Admission (POA): [ ] Yes [ ] No [ ] Unable to determine CLINICAL INDICATORS - SIGNS / SYMPTOMS / LABS Per H&P: Underwent laparoscopic assisted splenic flexure mobilization, left colon mobilization, low anterior resection with colorectal anastomosis and ileostomy on 11/21/18 due to rectal cancer. Had episode of emesis on 11/24. On presented to the ER with nausea and vomiting. Abdominal x-rays and CAT scan suggested ileus findings. Ileostomy output had diminished. Assessment and Plan: Ileus post low anterior resection with total diverting ileostomy. Per 11/27 to 11/29 PN's: Postoperative small bowel obstruction. Laparoscopy yesterday revealed ileus type findings. No mechanical obstruction. Ileus. The patient's bowel function is improving. Resolving ileus with functioning ileostomy. RISK FACTORS Status post laparoscopic assisted splenic flexure mobilization, left colon mobilization, low anterior resection with colorectal anastomosis and ileostomy on 11/21/18. TREATMENT Diagnostic laparoscopy on 11/27/18. NG tube. Sips and Chips. Advance diet slowly. Saline lock. (This form is maintained as a part of the permanent medical record) 2014 [employer]. All Rights Reserved Heather [email or web address] [phone] [facility]
== END 2018-11-30 17:08 | disposition home or self-care (01) | DRG 357 ==
LOC: ERS 23:29 → SURG A 11-26 02:10
PROVIDERS: ADMIT Specialist; ATTEND Specialist
PROC: 0WJG4ZZ Inspection of Peritoneal Cavity, Percutaneous Endoscopic Approach (ICD-10-PCS; principal; 2018-11-27)
DX: K56.7 Ileus, unspecified (principal); C20 Malignant neoplasm of rectum; Z93.2 Ileostomy status; Z92.21 Personal history of antineoplastic chemotherapy; Z92.3 Personal history of irradiation
CPT/HCPCS: 71046; 74018; 74019; 74177; 80048; 80053; 81003; 82378; 83605; 83690; 85025; 96361; 96365; 96375; 96376; J0131; J0670; J0694; J1100; J1650; J1885; J2001; J2060; J2250; J2270; J2405; J2550; J2704; J3010; J3480; J7050; J7120; Q9966

== ENCOUNTER 2018-12-09 20:39 | Emergency (ER) | payer SELFPAY ==
[2018-12-09 21:45] LABS: #Eosinphils 0.1 thou/uL (0.0-0.7); #Monocytes 0.4 thou/uL (0.11-0.59); #Neutrophils 5.3 thou/uL (1.40-6.50); %Basophils 0.5 % (0.0-1.0); %Lymphocytes 14.8 % (21.0-51.0); %Monocytes 6.3 % (0.0-10.0); %Neutrophils 76.4 % (42.0-75.0); Hemoglobin 13.2 g/dL (14.0-18.0); Mean Corpuscular HGB CONC 33.9 g/dL (32.0-36.0); Mean Corpuscular Hemoglobin 30.4 pg (27.0-31.0); Mean Corpuscular Volume 89.6 fL (78.0-98.0); Mean Platelet Volume 7.2 fL (7.4-10.4); Platelet Count 286 thou/uL (130-400); RBC Distribution Width 12.8 % (11.5-14.5); Red Blood Cell (RBC) Count 4.34 mill/uL (4.70-6.10); White Blood Cell (WBC) Count 6.9 thou/uL (4.8-10.8)
[2018-12-09 22:05] LABS: ALT (SGPT) 20 U/L (8-55); AST (SGOT) 17 U/L (5-34); Albumin 4.5 g/dL (3.5-5.0); Alkaline Phosphatase 102 U/L (40-150); Anion Gap 14 mmol/L (10-20); BUN (Urea Nitrogen) 11 mg/dL (8.4-25.7); Bilirubin, Total 0.3 mg/dL (0.2-1.2); Calc. Creatinine Clearance 0 mL/min (70-130); Carbon Dioxide 25 mmol/L (22-29); Chloride 105 mmol/L (98-107); Estimated GFR-MDRD 77; Globulin 3.7 g/dL (2.4-3.5); Glucose 94 mg/dL (70-105); Protein, Total 8.2 g/dL (6.0-8.3); Sodium 140 mmol/L (136-145)
[2018-12-09 22:06] LABS: Bilirubin Negative (Negative); Blood, Urine Negative (Negative); Clarity CLEAR (Clear); Glucose, Urine (Dipstick) Negative (Negative); Leukocyte Negative (Negative); Nitrite Negative (Negative); Protein, Urine (Dipstick) Negative (Neg-Trace); Specific Gravity, Urine 1.024 (1.002-1.036); Urobilinogen 0.2 mg/dL (0.2-1.0)
[2018-12-09] MEDS ORDERED: Bacitracin Zinc 1 Packet ONE (22:06)
== END 2018-12-09 22:23 | disposition home or self-care (01) ==
LOC: ERS 20:39
DX: K94.09 Other complications of colostomy (principal); I10 Essential (primary) hypertension
CPT/HCPCS: 36415; 80053; 81003; 85025; 99283

== ENCOUNTER 2018-12-12 09:32 | Outpatient (CLI) | payer SELFPAY ==
[2018-12-12] MEDS ORDERED: Sodium Chloride 0.9% 15 ML NEB ONE (18:00)
== END 2018-12-12 09:33 | disposition home or self-care (01) ==
LOC: WCC 09:32
PROVIDERS: ATTEND Family Medicine
DX: K94.09 Other complications of colostomy (principal); C20 Malignant neoplasm of rectum
CPT/HCPCS: 99211; A4218; G0463

== ENCOUNTER 2019-01-09 09:43 | Outpatient (CLI) | payer OTHER, SELFPAY ==
[2019-01-09] MEDS ORDERED: Sodium Chloride 0.9% 15 ML NEB ONE (18:00)
== END 2019-01-09 09:44 | disposition home or self-care (01) ==
LOC: WCC 09:43
PROVIDERS: ATTEND Family Medicine
DX: K94.19 Other complications of enterostomy (principal)
CPT/HCPCS: 99211; A4218; G0463

== ENCOUNTER 2019-01-18 01:02 | Outpatient (CLI) | payer SELFPAY ==
[2019-01-18 16:59] LABS: #Eosinphils 0.1 thou/uL (0.0-0.7); #Lymphocytes 1.1 thou/uL (1.20-3.40); #Monocytes 0.3 thou/uL (0.11-0.59); #Neutrophils 3.2 thou/uL (1.40-6.50); %Basophils 0.9 % (0.0-1.0); %Eosinophils 2.4 % (0.0-10.0); %Lymphocytes 22.9 % (21.0-51.0); %Monocytes 7.1 % (0.0-10.0); %Neutrophils 66.8 % (42.0-75.0); Mean Corpuscular HGB CONC 33.6 g/dL (32.0-36.0); Mean Corpuscular Volume 86.6 fL (78.0-98.0); Platelet Count 214 thou/uL (130-400); Red Blood Cell (RBC) Count 4.14 mill/uL (4.70-6.10); White Blood Cell (WBC) Count 4.8 thou/uL (4.8-10.8)
[2019-01-18 17:19] LABS: Anion Gap 13 mmol/L (10-20); BUN (Urea Nitrogen) 10 mg/dL (8.4-25.7); Calc. Creatinine Clearance 0 mL/min (70-130); Calcium 9.7 mg/dL (7.8-10.44); Carbon Dioxide 24 mmol/L (22-29); Chloride 105 mmol/L (98-107); Estimated GFR-MDRD 85; Glucose 81 mg/dL (70-105); Potassium 4.1 mmol/L (3.5-5.1); Sodium 138 mmol/L (136-145)
== END 2019-01-18 01:03 | disposition home or self-care (01) ==
LOC: LABBT 01:02
PROVIDERS: ATTEND Specialist
DX: Z01.812 Encounter for preprocedural laboratory examination (principal); C18.9 Malignant neoplasm of colon, unspecified; Z93.2 Ileostomy status
CPT/HCPCS: 80048; 85025

== ENCOUNTER 2019-01-18 09:53 | Inpatient (IN) | payer OTHER ==
--- NOTE | 2019-01-11 08:11 | HP ---
HISTORY OF PRESENT ILLNESS: Martinez Austin Junior is a 58-year-old male patient presented with a rectal cancer, underwent neoadjuvant chemoradiation therapy, completing that and then underwent low anterior resection with diverting ileostomy on 11/21/2018, discharged on 11/23/2018, but returned to the hospital on 11/27/2018 for an ileus, observed for a few days and discharged home. He has done well postoperatively, seen Wound Care for ileostomy management. Pathology reveals a T3 N0 M0 rectal cancer. He had a MediPort placed for neoadjuvant therapy. He is seeing Dr. Parsons, discussing postoperative chemotherapy. 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 He is return to work and we are planning ileostomy reversal in the next 2 weeks. Today in the office, rectal exam revealed a patent anastomosis and sphincter tone was good. ALLERGIES: NONE. TOBACCO: None. ALCOHOL: None. REVIEW OF SYSTEMS: Noncontributory. PAST SURGICAL HISTORY: As noted above. PAST MEDICAL HISTORY: Rectal cancer as noted above. PHYSICAL EXAMINATION: VITAL SIGNS: 176 pounds, 6 feet tall, 122/79, 69. HEAD, EARS, EYES, NOSE, AND THROAT: Unremarkable. LUNGS: Clear to auscultation. CARDIAC: Regular rate and rhythm without murmur or gallop. ABDOMEN: Soft and nontender. Ileostomy healthy. Midline wound well healed without hernias. EXTREMITIES: Unremarkable. RECTAL EXAM: Good sphincter tone with good voluntary tone and patent anastomosis by digital exam. ASSESSMENT: Undesired ileostomy. PLAN: Ileostomy reversal; general anesthesia, TAP block, Toradol, Ofirmev preoperatively. Anticipate discharge home in 24 to 48 hours postoperatively. He understands risks and benefits and consents. Job ID: [id number]
[2019-01-18 17:24] VITALS: BMI 25.2
[2019-01-21] MEDS ORDERED: Ketorolac Tromethamine 30 MG/ML VIAL ONE (09:10)
[2019-01-21] MEDS ORDERED: Fentanyl 100 MCG/2 ML VIAL ONE ×3 (09:28→11:58)
[2019-01-21] MEDS ORDERED: Meropenem 2 GM in Sodium Chloride 0.9% 100 ML IVPB SCH (09:30)
[2019-01-21] MEDS ORDERED: Midazolam HCl 2 mg/2 ml Vial ONE (09:35)
[2019-01-21] MEDS ORDERED: Dexamethasone 4 mg/ml Vial ONE (09:47)
[2019-01-21] MEDS ORDERED: SUGAMMADEX SODIUM 200 MG/2 ML VIAL ONE (11:17)
[2019-01-21] MEDS ORDERED: Promethazine HCl 25 MG/ML VIAL IM PRN (11:44)
[2019-01-21] MEDS ORDERED: Ondansetron HCl/PF 4 MG/2 ML Vial IVP PRN (11:44)
[2019-01-21] MEDS ORDERED: Promethazine HCl 25 MG/ML VIAL SLOW IVP PRN (11:44)
[2019-01-21] MEDS ORDERED: Morphine 4 MG/ML VIAL SLOW IVP PRN (11:48)
[2019-01-21] MEDS ORDERED: hydrALAZINE 20 MG/ML VIAL SLOW IVP PRN (11:48)
[2019-01-21] MEDS ORDERED: Ondansetron PF 4 MG/2 ML Vial IVP PRN (11:48)
[2019-01-21] MEDS ORDERED: traMADol HCl 50 MG TAB PO PRN ×2 (11:50)
[2019-01-21] MEDS ORDERED: Bupivacaine HCl 0.5%/Epinephrine 1:200,000/PF 30 ml Vial ONE (11:57)
[2019-01-21] MEDS ORDERED: Ketorolac Tromethamine 30 MG/ML VIAL IVP SCH (12:00)
[2019-01-21] MEDS ORDERED: Acetaminophen 1,000 MG in Premix Bag 1 BAG IVPB SCH (12:00)
[2019-01-21] MEDS ORDERED: Rocuronium Bromide 10 MG/ML (10ML VIAL) ONE (13:02)
[2019-01-21] MEDS ORDERED: PROPOFOL 200 MG/20 ML VIAL ONE (13:02)
[2019-01-21] MEDS ORDERED: Lidocaine 1% PF 5 ML VIAL ONE (13:02)
[2019-01-21] MEDS ORDERED: Dexamethasone 20 MG/5 ML VIAL ONE (13:02)
[2019-01-21] MEDS ORDERED: Succinylcholine Chloride 20 MG/ML 10 ml SYRINGE FS ONE (13:02)
[2019-01-21] MEDS ORDERED: Ondansetron PF 4 MG/2 ML Vial ONE (13:02)
[2019-01-21] MEDS: D5 1/2 NS w/20 mEq KCL 1,000 ML IV SCH ×2 (14:44→20:17)
--- NOTE | 2019-01-21 18:03 | OP ---
DATE OF PROCEDURE: 01/21/2019 PREOPERATIVE DIAGNOSIS: Rectal cancer, status post low anterior resection after neoadjuvant therapy, now reporting for closure of diverting protective ileostomy. POSTOPERATIVE DIAGNOSIS: Rectal cancer, status post low anterior resection after neoadjuvant therapy, now reporting for closure of diverting protective ileostomy. PROCEDURE PERFORMED: Closure of diverting protective ileostomy. ANESTHESIA: General, TAP block. ESTIMATED BLOOD LOSS: 40 mL. BLOOD TRANSFUSION: None. DESCRIPTION OF PROCEDURE: The patient was taken to the operating room under general anesthesia and TAP block. Ileostomy closed with locking suture of 2-0 silk. Abdomen prepared with ChloraPrep and draped in routine fashion. An elliptical incision was made over the ileostomy site skin and subcutaneous tissues. Dissecting the ostomy free from the fascial edges, delivering both ends of the terminal ileum out of the wound and performing a staple anastomosis with 2 fires of YASMIN 75 stapler. Reinforcing anastomosis with interrupted Lembert suture of 3-0 silk and closure of the mesenteric defect with 3-0 silk suture, which was dropped back into the abdominal cavity and posterior fascia closed with one PDS and anterior fascia closed with [id number] sutures of 0 PDS pop-offs. Skin and subcutaneous tissues irrigated. Subcutaneous tissues and skin approximated with 3-0 and 4-0 Monocryl respectfully with a puckering kissing type closure technique. Dermabond applied. The patient tolerated the procedure well. Job ID: [id number]
[2019-01-21] MEDS ORDERED: Enoxaparin Sodium 40 MG/0.4 ML SYRINGE SC SCH (21:00)
[2019-01-21] MEDS: Acetaminophen 1,000 MG in Premix Bag 1 BAG IVPB SCH (21:28)
[2019-01-21] MEDS: Ketorolac Tromethamine 30 MG/ML VIAL IVP SCH (21:28)
[2019-01-22] MEDS: Acetaminophen 1,000 MG in Premix Bag 1 BAG IVPB SCH ×2 (04:24→10:36)
[2019-01-22] MEDS: Ketorolac Tromethamine 30 MG/ML VIAL IVP SCH ×2 (04:25→10:20)
[2019-01-22] MEDS: Acetaminophen 500 MG TAB PO PRN ×2 (04:25→10:21)
[2019-01-22 06:25] LABS: #Lymphocytes 0.7 thou/uL (1.20-3.40); #Monocytes 0.6 thou/uL (0.11-0.59); #Neutrophils 12.3 thou/uL (1.40-6.50); %Basophils 0.2 % (0.0-1.0); %Eosinophils 0.2 % (0.0-10.0); %Lymphocytes 5.1 % (21.0-51.0); %Monocytes 4.5 % (0.0-10.0); %Neutrophils 90.1 % (42.0-75.0); Hemoglobin 11.8 g/dL (14.0-18.0); Mean Corpuscular HGB CONC 32.8 g/dL (32.0-36.0); Mean Corpuscular Volume 88.3 fL (78.0-98.0); Mean Platelet Volume 7.3 fL (7.4-10.4); Platelet Count 190 thou/uL (130-400); RBC Distribution Width 13.1 % (11.5-14.5); Red Blood Cell (RBC) Count 4.08 mill/uL (4.70-6.10); White Blood Cell (WBC) Count 13.7 thou/uL (4.8-10.8)
[2019-01-22 06:54] LABS: Anion Gap 12 mmol/L (10-20); BUN (Urea Nitrogen) 11 mg/dL (8.4-25.7); Calc. Creatinine Clearance 116 mL/min (70-130); Calcium 9.3 mg/dL (7.8-10.44); Carbon Dioxide 23 mmol/L (22-29); Chloride 106 mmol/L (98-107); Estimated GFR-MDRD Greater than 90; Glucose 111 mg/dL (70-105); Potassium 4.1 mmol/L (3.5-5.1); Sodium 137 mmol/L (136-145)
[2019-01-22 08:17] VITALS: BP 137/82; TEMP 98.1
[2019-01-22] MEDS: D5 1/2 NS w/20 mEq KCL 1,000 ML IV SCH (08:34)
[2019-01-22] MEDS ORDERED: Ibuprofen 600 MG TAB PO PRN (10:21)
--- NOTE | 2019-01-22 10:37 | PRG ---
DATE OF SERVICE: 01/22/2019 SUBJECTIVE: Martinez Austin doing well after reversal of ileostomy yesterday. He is passing flatus. He has not had a bowel movement. He has not had any nausea or vomiting. OBJECTIVE: VITAL SIGNS: Temperature 98.1, pulse 64, and blood pressure 137/82. LUNGS: Clear to auscultation. CARDIAC: Regular rate and rhythm without murmur or gallop. ABDOMEN: Soft, nontender. Wounds look good. Ileostomy reversal site healthy. LABORATORY DATA: This morning, his hemoglobin is 11.8. Basic metabolic profile is normal. ASSESSMENT AND PLAN: Doing well after ileostomy reversal. Advance diet as tolerated. Saline lock. We will plan discharge home today. He has Ultram at home for use. No prescriptions necessary. Take [id number] Tylenol and ibuprofen as necessary. Job ID: [id number]
--- NOTE | 2019-01-22 11:55 | DIS ---
DATE OF ADMISSION: 01/21/2019 DATE OF DISCHARGE: 01/22/2019 DISCHARGE DIAGNOSIS: Rectal cancer, status post neoadjuvant chemotherapy, subsequent laparoscopic-assisted low anterior resection with colorectal anastomosis and protective diverting ileostomy. HOSPITAL COURSE: He was followed by Dr. Parsons, Oncology. Admitted on this occasion for ileostomy reversal, which he underwent. He has tolerated his diet and has been discharged home on Ultram, Tylenol, and Motrin p.r.n. pain. Resume his home medication. Follow up with Dr. Parosns in the next 1 to 2 weeks. Follow up in my office in the next 1 to 2 weeks. Diet as tolerated. Job ID: [id number]
== END 2019-01-22 14:00 | disposition home or self-care (01) | DRG 330 ==
LOC: SURG A 01-21 08:39
PROVIDERS: ADMIT Specialist; ATTEND Specialist
PROC: 0DQB0ZZ Repair Ileum, Open Approach (ICD-10-PCS; principal; 2019-01-21)
DX: Z43.2 Encounter for attention to ileostomy (principal); C20 Malignant neoplasm of rectum; Z92.21 Personal history of antineoplastic chemotherapy; Z92.3 Personal history of irradiation
CPT/HCPCS: 80048; 85025; 88307; J0131; J1100; J1642; J1650; J1885; J2185; J2250; J3010; J3490

== ENCOUNTER 2019-01-22 20:31 | Inpatient (IN) | payer OTHER, SELFPAY ==
[2019-01-22 20:54] LABS: #Lymphocytes 0.6 thou/uL (1.20-3.40); #Monocytes 0.4 thou/uL (0.11-0.59); #Neutrophils 9.4 thou/uL (1.40-6.50); %Eosinophils 0.3 % (0.0-10.0); %Lymphocytes 5.3 % (21.0-51.0); %Monocytes 4.2 % (0.0-10.0); %Neutrophils 90.3 % (42.0-75.0); Mean Corpuscular HGB CONC 32.6 g/dL (32.0-36.0); Mean Corpuscular Hemoglobin 28.9 pg (27.0-31.0); Mean Corpuscular Volume 88.5 fL (78.0-98.0); Mean Platelet Volume 7.2 fL (7.4-10.4); Platelet Count 215 thou/uL (130-400); RBC Distribution Width 13.1 % (11.5-14.5); Red Blood Cell (RBC) Count 4.16 mill/uL (4.70-6.10); White Blood Cell (WBC) Count 10.5 thou/uL (4.8-10.8)
[2019-01-22 21:00] LABS: PTT 23.4 SEC (22.9-36.1)
[2019-01-22 21:14] LABS: ALT (SGPT) 10 U/L (8-55); AST (SGOT) 19 U/L (5-34); Albumin 4.2 g/dL (3.5-5.0); Alkaline Phosphatase 98 U/L (40-150); Anion Gap 12 mmol/L (10-20); BUN (Urea Nitrogen) 19 mg/dL (8.4-25.7); Bilirubin, Total 0.6 mg/dL (0.2-1.2); Calc. Creatinine Clearance 0 mL/min (70-130); Calcium 10.1 mg/dL (7.8-10.44); Carbon Dioxide 27 mmol/L (22-29); Chloride 108 mmol/L (98-107); Estimated GFR-MDRD 82; Globulin 3.6 g/dL (2.4-3.5); Glucose 121 mg/dL (70-105); Potassium 4.5 mmol/L (3.5-5.1); Protein, Total 7.8 g/dL (6.0-8.3); Sodium 142 mmol/L (136-145)
[2019-01-22] MEDS ORDERED: Morphine 4 MG/ML VIAL ONE (22:12)
[2019-01-22] MEDS ORDERED: Ondansetron PF 4 MG/2 ML Vial ONE (22:19)
--- NOTE | 2019-01-22 22:20 | RAD ---
KUB AND UPRIGHT AND PA CHEST: 01/22/19 HISTORY: Patient had an ileostomy reversal yesterday after discussion with Dr. Short. There is air in small and large bowel in a nonobstructed pattern. There is free air into the right he midiaphragm which would be compatible with the very recent surgery. PA CHEST: Heart size and mediastinum within normal limits. The left sided Mediport catheter is present. The mera gs are clear of any infiltrative process. IMPRESSION: Free air under the hemidiaphragms consistent with recent surgery. Findings discussed with Dr. Short. [place] [facility] [place]
[2019-01-22] MEDS ORDERED: Lactated Ringer's 1,000 ML IV SCH (23:45)
[2019-01-22] MEDS ORDERED: Ondansetron PF 4 MG/2 ML Vial IVP PRN (23:48)
[2019-01-22] MEDS ORDERED: Ondansetron ODT 4 MG TAB SL PRN (23:48)
[2019-01-23 01:04] VITALS: BMI 24.2
[2019-01-23 05:22] LABS: #Eosinphils 0.1 thou/uL (0.0-0.7); #Monocytes 0.5 thou/uL (0.11-0.59); #Neutrophils 5.4 thou/uL (1.40-6.50); %Basophils 0.2 % (0.0-1.0); %Eosinophils 1.6 % (0.0-10.0); %Lymphocytes 13.9 % (21.0-51.0); %Monocytes 7.2 % (0.0-10.0); %Neutrophils 77.1 % (42.0-75.0); Hemoglobin 10.8 g/dL (14.0-18.0); Mean Corpuscular Hemoglobin 29.2 pg (27.0-31.0); Mean Corpuscular Volume 88.6 fL (78.0-98.0); Mean Platelet Volume 6.9 fL (7.4-10.4); Platelet Count 179 thou/uL (130-400); RBC Distribution Width 13.1 % (11.5-14.5)
[2019-01-23] MEDS ORDERED: Acetaminophen 500 MG TAB PO PRN (07:04)
[2019-01-23] MEDS ORDERED: traMADol HCl 50 MG TAB PO PRN (07:04)
[2019-01-23] MEDS ORDERED: Ondansetron ODT 8 MG TAB PO PRN (07:05)
[2019-01-23] MEDS ORDERED: Ketorolac Tromethamine 30 MG/ML VIAL IVP PRN (07:05)
[2019-01-23] MEDS ORDERED: Acetaminophen 1,000 MG in Premix Bag 1 BAG IVPB PRN (07:05)
[2019-01-23] MEDS ORDERED: Ondansetron ODT 8 MG TAB SL PRN (07:05)
[2019-01-23] MEDS ORDERED: Ondansetron PF 4 MG/2 ML Vial IVP PRN (07:05)
[2019-01-23] MEDS: Lactated Ringer's 1,000 ML IV SCH ×2 (07:46→16:25)
[2019-01-23] MEDS: Pantoprazole 40 MG VIAL IVP SCH (07:46)
[2019-01-23] MEDS: traMADol HCl 50 MG TAB PO PRN ×3 (10:15→22:40)
--- NOTE | 2019-01-23 13:10 | HP ---
HISTORY OF PRESENT ILLNESS: Martinez Austin went home yesterday, but began having bloody stools, felt nauseated, and reported back to the emergency room. His preoperative hemoglobin and discharge hemoglobin 12. On readmission, his hemoglobin is 12. This morning, it is 10.8. He has had 4 bloody bowel movements since admission. The patient remains hemodynamically stable. PHYSICAL EXAMINATION: VITAL SIGNS: Temperature 98.5 degrees, pulse 63, blood pressure 145/80. GENERAL: He does not feel hungry this morning. LUNGS: Clear to auscultation. CARDIAC: Regular rate and rhythm without murmur or gallop. ABDOMEN: Soft, nondistended, nontender. Bowel sounds present. Surgical wound in right lower quadrant looks good. LABORATORY DATA: This morning, his white count is 7, hemoglobin 10.8. Sodium 142, chloride 108, glucose 121. Abdominal x-rays obtained on readmission reveal a nonspecific gas pattern and free air as expected 2 days postoperatively. ASSESSMENT/PLAN: Gastrointestinal bleeding, post ileostomy reversal. The patient had a protective ileostomy after low anterior resection for rectal cancer, following neoadjunctive chemoradiation therapy. If the patient remains hemodynamically stable, we will check his hemoglobin this afternoon. We will discuss with GI, Dr. Christian. I do not think that endoscopically this is reachable, but we will discuss with Dr. Christian. If he continues with bleeding, he may need operative intervention, but we will follow him today and hopefully, we can avoid that. Job ID: [id number]
[2019-01-23 14:24] LABS: Hemoglobin 10.5 g/dL (14.0-18.0); Mean Corpuscular HGB CONC 32.7 g/dL (32.0-36.0); Mean Corpuscular Volume 88.6 fL (78.0-98.0); Red Blood Cell (RBC) Count 3.64 mill/uL (4.70-6.10); White Blood Cell (WBC) Count 6.2 thou/uL (4.8-10.8)
[2019-01-23 14:25] LABS: #Eosinphils 0.1 thou/uL (0.0-0.7); #Lymphocytes 0.9 thou/uL (1.20-3.40); #Monocytes 0.5 thou/uL (0.11-0.59); #Neutrophils 4.6 thou/uL (1.40-6.50); %Basophils 0.3 % (0.0-1.0); %Eosinophils 2.1 % (0.0-10.0); %Lymphocytes 14.9 % (21.0-51.0); %Monocytes 7.3 % (0.0-10.0); %Neutrophils 75.4 % (42.0-75.0)
[2019-01-23 15:24] LABS: Mean Platelet Volume 6.7 fL (7.4-10.4); Platelet Count 164 thou/uL (130-400); Platelet Morphology Comment Appears Adequate
--- NOTE | 2019-01-23 16:37 | CON ---
DATE OF CONSULTATION: 01/23/2019 HISTORY OF PRESENT ILLNESS: Mr. Austin is a 58-year-old man, who was diagnosed with rectal cancer in May of last year, who subsequently underwent a low anterior resection with subsequent chemoradiation therapy. He was disease-free and subsequently, underwent closure of diverting protective ileostomy 2 days ago. He reports having onset of abdominal cramping especially around the stoma area after getting home. Last night, he began having blood per his rectum every time he tries to urinate. The patient subsequently presents to the emergency room. His hemoglobin has dropped from 12 g-dL down to 10 g-dL. However, he remained hemodynamically normal. He has had 4 bowel movements since admission overnight. However, over the last 4 hours, he thinks the bleeding has greatly subsided, as he has not had any further blood per rectum when he tries to urinate. Currently, the abdominal cramps is much better. He does not have any nausea, vomiting, as he did at home. PAST MEDICAL HISTORY: 1. History of hypertension in the past, not on any medication now. 2. Left calcaneus fracture. 3. History of kidney stones. MEDICATIONS: Occasional Tylenol [id number]. No prescription medication. ALLERGIES: NONE. SOCIAL HISTORY: The patient is single. Has 4 children. Former smoker. No active tobacco or alcohol usage. FAMILY HISTORY: Negative for any known GI problem, liver disease, or GI malignancy. REVIEW OF SYSTEMS: A 10-point review of systems did not show any other pertinent positives or negatives. PHYSICAL EXAMINATION: VITAL SIGNS: Temperature is 97.9, blood pressure 152/83, pulse of 58. GENERAL: He is alert, conversant, does not appear in any distress. HEENT: Shows anicteric sclerae. Oropharynx is clear and moist. NECK: Supple. CARDIOVASCULAR: Shows normal S1, S2. Regular rate and rhythm. CHEST: Shows breath sounds. ABDOMEN: Soft, flat. No distention. No tympany. Mildly tender, but no guarding, tensing, rebound. He does have active bowel sounds. Previous stoma site suture appears normal without any induration or drainage or bleeding. EXTREMITIES: Shows no edema. LABORATORY DATA: WBC is 6.2, hemoglobin 10.5 at 2:00 p.m. (10.8 at 5:00 p.m. and 12.0 at 8:00 p.m. last night), platelet count of 164. Electrolytes within normal range. Creatinine 0.95. LFTs are normal. ASSESSMENT: Gastrointestinal bleed, likely near the anastomosis site, status post closure of ileostomy 2 days ago. Clinically, bleeding appears to have significantly slowed down or stopped. His blood count has remained stable and unchanged over the last 12 hours. RECOMMENDATION: 1. No indication for intervention at this point as bleeding appears to be slowing down. In addition, the patient is only 2 days out from the ileostomy closure and I would want to avoid any colonic intubation and procedure unless as absolutely necessary. 2. Continue to closely monitor and trend his blood count. 3. We will follow. Job ID: [id number]
[2019-01-24] MEDS: Lactated Ringer's 1,000 ML IV SCH ×2 (01:03→07:31)
[2019-01-24 04:51] LABS: #Eosinphils 0.2 thou/uL (0.0-0.7); #Lymphocytes 0.7 thou/uL (1.20-3.40); #Monocytes 0.4 thou/uL (0.11-0.59); #Neutrophils 3.5 thou/uL (1.40-6.50); %Basophils 0.7 % (0.0-1.0); %Eosinophils 3.8 % (0.0-10.0); %Monocytes 8.7 % (0.0-10.0); %Neutrophils 71.8 % (42.0-75.0); Hemoglobin 10.2 g/dL (14.0-18.0); Mean Corpuscular HGB CONC 33.7 g/dL (32.0-36.0); Mean Corpuscular Hemoglobin 29.6 pg (27.0-31.0); Mean Corpuscular Volume 87.9 fL (78.0-98.0); Mean Platelet Volume 6.9 fL (7.4-10.4); Platelet Count 168 thou/uL (130-400); RBC Distribution Width 12.9 % (11.5-14.5); Red Blood Cell (RBC) Count 3.45 mill/uL (4.70-6.10); White Blood Cell (WBC) Count 4.8 thou/uL (4.8-10.8)
[2019-01-24 05:04] LABS: Anion Gap 11 mmol/L (10-20); BUN (Urea Nitrogen) 11 mg/dL (8.4-25.7); Calc. Creatinine Clearance 117 mL/min (70-130); Calcium 9.3 mg/dL (7.8-10.44); Carbon Dioxide 30 mmol/L (22-29); Chloride 104 mmol/L (98-107); Estimated GFR-MDRD Greater than 90; Glucose 85 mg/dL (70-105); Potassium 3.7 mmol/L (3.5-5.1); Sodium 141 mmol/L (136-145)
[2019-01-24] MEDS: Pantoprazole 40 MG VIAL IVP SCH (08:39)
[2019-01-24] MEDS ORDERED: Acetaminophen 500 MG TAB PO PRN (09:10)
[2019-01-24] MEDS ORDERED: traMADol HCl 50 MG TAB PO PRN ×2 (09:10)
--- NOTE | 2019-01-24 09:24 | PRG ---
DATE OF SERVICE: 01/24/2019 SUBJECTIVE: Martinez Austin is doing well today. He has not had any more bleeding per rectum. He has had nonbloody stools. OBJECTIVE: VITAL SIGNS: Temperature 98 degrees, blood pressure 117/70. LUNGS: Clear to auscultation. CARDIAC: Regular rate and rhythm without murmur or gallop. ABDOMEN: Soft, nontender. LABORATORY DATA: Hemoglobin 10.2. ASSESSMENT AND PLAN: Gastrointestinal bleeding after ileostomy reversal, this is now resolved. His hemoglobin is stable. He has not required a transfusion. Plan is to discharge him home later today after lunch. We will order a GI soft diet for lunch and plan discharge home this afternoon if he is doing well. He will follow up in my office per appointment, follow up with Dr. Parsons per appointment. Job ID: [id number]
--- NOTE | 2019-01-24 12:15 | DIS ---
DATE OF ADMISSION: 01/22/2019 DATE OF DISCHARGE: 01/24/2019 DISCHARGE DIAGNOSES: Gastrointestinal bleeding after ileostomy reversal, history of rectal cancer, status post neoadjuvant therapy, laparoscopic-assisted low anterior resection subsequently and subsequent ileostomy reversal of protective ileostomy. Readmission the same day, he was discharged, for GI bleeding. Blood transfused, none. HISTORY: A 58-year-old male with the above history, discharged and then readmitted the same day for GI bleeding. His hemoglobin fell from 12 to 10. He did not require transfusion. GI was consulted. Dr. Stephens saw him and no intervention was required. His bleeding spontaneously discontinued. He is advised to advance his diet slowly. He will resume his home medications and follow up in my office in 2 weeks. Avoid lifting over 25 pounds. Job ID: [id number]
[2019-01-24 12:25] VITALS: BP 154/88; TEMP 98.1
[2019-01-25] MEDS ORDERED: Ferrous Sulfate 325 MG TAB PO SCH (08:00)
[2019-01-28] MEDS ORDERED: Ibuprofen 600 MG TAB PO PRN (13:00)
== END 2019-01-24 13:55 | disposition home or self-care (01) | DRG 921 ==
LOC: ERS 20:31 → SURG B 21:20
PROVIDERS: ADMIT Specialist; ATTEND Specialist
DX: K91.840 Postprocedural hemorrhage of a digestive system organ or structure following a digestive system procedure (principal); I10 Essential (primary) hypertension; Z79.899 Other long term (current) drug therapy; Z85.048 Personal history of other malignant neoplasm of rectum, rectosigmoid junction, and anus; Z87.442 Personal history of urinary calculi
CPT/HCPCS: 36415; 74022; 80048; 85025; 85610; 85730; 86850; 86900; 86901; 93005; 96361; 96374; 96375; C9113; J0131; J1642; J2270; J2405; Q0162

== ENCOUNTER 2019-02-27 10:15 | Day surgery (SDC) | payer SELFPAY ==
[~2019-02-27 10:15] MED LIST: DEXTROSE 5% IVPB SCH; Dexamethasone Sod Phosphate 10 MG, Ondansetron 2MG/ML MDV 15 MG in Sodium Chloride 0.9%... IVPB SCH; FLUOROURACIL IVPB SCH; LEUCOVORIN CALCIUM IVPB SCH; Oxaliplatin 170 MG in Dextrose 5% in Water 500 ML IVPB SCH; WATER IVPB SCH
[2019-02-27] MEDS ORDERED: Sodium Chloride 0.9% 30 ML ONE (10:21)
[2019-02-27 10:38] VITALS: BP 156/94; TEMP 98.3
[2019-02-27] MEDS ORDERED: WATER IVPB SCH ×2 (11:00→12:00)
[2019-02-27] MEDS ORDERED: DEXTROSE 5% IVPB SCH ×2 (11:00→12:00)
[2019-02-27] MEDS ORDERED: OXALIPLATIN IVPB SCH (11:00)
[2019-02-27] MEDS ORDERED: LEUCOVORIN CALCIUM IVPB SCH (12:00)
== END 2019-02-27 16:19 | disposition home or self-care (01) ==
LOC: ONC/OP 10:15
PROVIDERS: ATTEND Internal Medicine Hematology & Oncology
DX: Z51.11 Encounter for antineoplastic chemotherapy (principal); C20 Malignant neoplasm of rectum
CPT/HCPCS: 96413; 96415; 96417; J0640; J1100; J2405; J7050; J7070; J9190; J9263